=== PATIENT | female | born 1935 | race Two or more races ===

== ENCOUNTER 2016-04-01 11:11 | Inpatient (IN) | payer MEDICAID, MEDICARE ==
[2016-04-01] VITALS (11 sets, daily range): BP systolic 123–189; BP diastolic 62–135
[~2016-04-01] VITALS: Ht 157.5 cm; Wt 71.7 kg
[~2016-04-01 11:11] MED LIST: BISA-79 PO; CEFA1SYR IV; DILT240C88 PO; DOCU-170 PO; DONE5TAB3 PO; FURO40TA5 PO; Heparin Sodium,Porcine SQ; LACT10SO6 PO; LEVA0.6320 IH; MAGN400O4 PO; NA P133E RC; NUT.100029 PEG; PANT40TA4 PO; POLY17PO4 PO; SUCR1TAB PO; TYL2T PO
[2016-04-01] MEDS ORDERED: IV NS 0.9% 500 ML BAG IV ONE (13:00)
[2016-04-01] MEDS ORDERED: IV NS 0.9% 500 ML IV ONE (13:04)
[2016-04-01 13:31] LABS: BASOPHILS % (AUTO) 0.3 % (0.0-2.0); DIFF TOTAL % 100 %; EOSINOPHILS % (AUTO) 0.1 % (0.0-6.0); HEMATOCRIT 38 % (33-45); HEMOGLOBIN 12.4 g/dL (11.5-14.8); LYMPHOCYTES # (AUTO) 1.2 /CMM (0.8-4.8); MEAN CORPUSCULAR HEMOGLOBIN 29 PG (26.0-33.0); MEAN CORPUSCULAR HGB CONC 33 g/dl (31.0-36.0); MEAN CORPUSCULAR VOLUME 90 fL (82-100); MONOCYTES # (AUTO) 0.7 /CMM (0.1-1.30); MONOCYTES % (AUTO) 7.3 % (2.0-12.0); NEUTROPHILS # (AUTO) 8.1 /CMM (1.8-8.9); NEUTROPHILS % (AUTO) 80.3 % (43.0-81.0); PLATELET COUNT (AUTO) 323 /CMM (150-450); RED BLOOD CELL COUNT(AUTO) 4.24 MIL/uL (4.0-5.2); WHITE BLOOD COUNT (AUTO) 10.1 K/uL (4.3-11.0)
[2016-04-01 13:32] LABS: CALCIUM, SERUM 9.8 mg/dL (8.5-10.1); CREATININE 1.1 mg/dL (0.6-1.3); POTASSIUM 4.1 mmol/L (3.5-5.1)
[2016-04-01 13:36] LABS: INR 1.1 (0.87-1.13); PROTHROMBIN TIME 11.6 SECS (9.5-12.7)
[2016-04-01 13:40] LABS: TROPONIN I 0.023 ng/mL (0.00-0.056)
[2016-04-01 13:45] LABS: ALBUMIN 2.7 g/dL (3.4-5.0); BILIRUBIN,DIRECT 0.3 mg/dL (0.0-0.2); BILIRUBIN,TOTAL 0.8 mg/dL (0.2-1.0); INDIRECT BILIRUBIN 0.5 mg/dL (0.0-1.1); TOTAL PROTEIN, SERUM 6.8 g/dL (6.4-8.2)
[2016-04-01] MEDS ORDERED: DILTIAZEM HCL 25 MG IV ONE (13:49)
[2016-04-01 13:50] LABS: LACTIC ACID 1.3 mmol/L (0.4-2.0)
[2016-04-01] MEDS ORDERED: predniSONE 20 MG TABLET PO ONE (14:00)
[2016-04-01] MEDS ORDERED: LEVALBUTEROL HCL NEB 1.25 MG/0.5 ML VIAL.NEB NEB ONE (14:00)
[2016-04-01] MEDS ORDERED: DILTIAZEM HCL 25 MG IV IV ONE (14:00)
[2016-04-01] MEDS ORDERED: FUROSEMIDE 20 MG/2 ML VIAL IV ONE (14:00)
[2016-04-01] MEDS ORDERED: DILTIAZEM HCL IV 125 MG in IV D5W 100 ML IV ONE (14:00)
[2016-04-01] MEDS ORDERED: FUROSEMIDE 20 MG/2 ML VIAL ONE (14:03)
[2016-04-01] MEDS ORDERED: predniSONE 20 MG TABLET ONE (14:03)
[2016-04-01] MEDS ORDERED: LEVA0.6320 IH (14:08)
[2016-04-01] MEDS ORDERED: ASCO500T9 PO (14:08)
[2016-04-01] MEDS ORDERED: DONE5TAB34 PO (14:08)
[2016-04-01] MEDS ORDERED: MULT-659 PO (14:08)
[2016-04-01] MEDS ORDERED: ZINC220C8 PO (14:08)
[2016-04-01] MEDS ORDERED: IV SET PRIMARY PUMP SET 1 EA INFUS.SET MC ONE (14:19)
[2016-04-01] MEDS ORDERED: IV NS 0.9% 1,000 ML IV PRN (14:40)
[2016-04-01] MEDS ORDERED: PANTOPRAZOLE 40 MG TABLET.DR PO SCH (15:00)
[2016-04-01] MEDS: DONEPEZIL 5 MG TABLET PO SCH ×2 (15:00→21:54)
[2016-04-01] MEDS: ASCORBIC ACID 500 MG TABLET PO SCH (15:00)
[2016-04-01] MEDS ORDERED: Medication Not On Formulary EA (Levalbuterol Hcl (Xopenex) 0.63 MG) IH PRN (15:00)
[2016-04-01] MEDS ORDERED: ONDANSETRON HCL/PF 4 MG/2 ML VIAL IVP PRN (15:00)
[2016-04-01] MEDS: ZINC SULFATE 220 MG CAPSULE PO SCH (15:00)
[2016-04-01] MEDS ORDERED: Z GUARD REMEDY 2 OZ OINT TP PRN (15:00)
[2016-04-01] MEDS: SUCRALFATE 1 G TABLET PO SCH ×2 (15:00→17:32)
[2016-04-01] MEDS ORDERED: ACETAMINOPHEN 325 MG TABLET PO PRN (15:00)
[2016-04-01] MEDS ORDERED: ZOLPIDEM TARTRATE 5 MG TABLET PO PRN (15:00)
[2016-04-01] MEDS ORDERED: MORPHINE SULFATE INJ 2 MG/ML DISP.SYRIN IV PRN (15:00)
[2016-04-01] MEDS: methylPREDNISolone SOD SUCC 40 MG/ML VIAL IV SCH ×2 (15:00→17:32)
[2016-04-01] MEDS ORDERED: ALBUTEROL HALF STRENGTH 1.25 MG/3 ML VIAL.NEB NEB PRN (15:30)
[2016-04-01] MEDS: FUROSEMIDE 40 MG/4 ML VIAL IV SCH (17:01)
[2016-04-01] MEDS: ENOXAPARIN SODIUM 40 MG/0.4 ML DISP.SYRIN SQ SCH (17:02)
[2016-04-01] MEDS: DILTIAZEM HCL CD 240 MG PO SCH (17:03)
[2016-04-01] MEDS: ALBUTEROL FS 2.5 MG/0.5 ML VIAL.NEB NEB SCH ×2 (17:18→19:38)
[2016-04-01] MEDS: IPRATROPIUM NEB FS 0.5 MG/2.5 ML AMPUL.NEB NEB SCH ×2 (17:19→19:25)
[2016-04-01] MEDS: PANTOPRAZOLE 40 MG TABLET.DR PO SCH (17:32)
[2016-04-01] MEDS ORDERED: DILTIAZEM HCL 30 MG TABLET PO SCH (18:00)
[2016-04-01] MEDS ORDERED: LORAZEPAM INJ 2 MG/ML VIAL IV PRN (19:00)
[2016-04-01] MEDS: hydrALAZINE HCL 25 MG TABLET PO SCH (19:01)
[2016-04-01] MEDS: HYDROCODONE/APAP 5/325MG 1 EACH TABLET PO PRN (20:01)
[2016-04-02] VITALS (20 sets, daily range): BP systolic 104–132; BP diastolic 50–89
[2016-04-02] MEDS: IPRATROPIUM NEB FS 0.5 MG/2.5 ML AMPUL.NEB NEB SCH ×7 (00:04→23:51)
[2016-04-02] MEDS: ALBUTEROL FS 2.5 MG/0.5 ML VIAL.NEB NEB SCH ×3 (00:05→07:28)
[2016-04-02] MEDS: hydrALAZINE HCL 25 MG TABLET PO SCH ×3 (05:05→20:37)
[2016-04-02 05:19] LABS: BASOPHILS % (AUTO) 0.2 % (0.0-2.0); DIFF TOTAL % 100 %; HEMATOCRIT 36 % (33-45); HEMOGLOBIN 11.6 g/dL (11.5-14.8); LYMPHOCYTES # (AUTO) 0.8 /CMM (0.8-4.8); LYMPHOCYTES % (AUTO) 13.3 % (20.0-44.0); MEAN CORPUSCULAR HEMOGLOBIN 30 PG (26.0-33.0); MEAN CORPUSCULAR HGB CONC 33 g/dl (31.0-36.0); MEAN CORPUSCULAR VOLUME 90 fL (82-100); MONOCYTES # (AUTO) 0.1 /CMM (0.1-1.30); MONOCYTES % (AUTO) 1.4 % (2.0-12.0); NEUTROPHILS # (AUTO) 5.3 /CMM (1.8-8.9); NEUTROPHILS % (AUTO) 85.1 % (43.0-81.0); PLATELET COUNT (AUTO) 281 /CMM (150-450); RED BLOOD CELL COUNT(AUTO) 3.94 MIL/uL (4.0-5.2); WHITE BLOOD COUNT (AUTO) 6.2 K/uL (4.3-11.0)
[2016-04-02 05:34] LABS: ALBUMIN 2.6 g/dL (3.4-5.0); BILIRUBIN,TOTAL 0.4 mg/dL (0.2-1.0); CALCIUM, SERUM 9.7 mg/dL (8.5-10.1); PHOSPHORUS 3.6 mg/dL (2.5-4.9); POTASSIUM 3.5 mmol/L (3.5-5.1); TOTAL PROTEIN, SERUM 6.7 g/dL (6.4-8.2)
[2016-04-02] MEDS: FUROSEMIDE 40 MG/4 ML VIAL IV SCH ×2 (08:31→17:08)
[2016-04-02] MEDS: SUCRALFATE 1 G TABLET PO SCH ×3 (08:31→17:08)
[2016-04-02] MEDS: DILTIAZEM HCL CD 240 MG PO SCH (08:31)
[2016-04-02] MEDS: ZINC SULFATE 220 MG CAPSULE PO SCH (08:31)
[2016-04-02] MEDS: methylPREDNISolone SOD SUCC 40 MG/ML VIAL IV SCH ×3 (08:31→17:08)
[2016-04-02] MEDS: MULTIVIT, IRON, MIN NO. 8, FA 1 TAB TABLET PO SCH (08:31)
[2016-04-02] MEDS: ASCORBIC ACID 500 MG TABLET PO SCH (08:34)
[2016-04-02] MEDS: PANTOPRAZOLE 40 MG TABLET.DR PO SCH ×2 (08:38→17:08)
[2016-04-02] MEDS ORDERED: DILTIAZEM HCL CD 180 MG PO SCH (09:00)
[2016-04-02] MEDS: POTASSIUM CHLORIDE 20 MEQ TAB.PRT.SR PO SCH ×3 (09:36→12:02)
[2016-04-02] MEDS ORDERED: DILTIAZEM HCL CD 120 MG PO ONE (10:00)
[2016-04-02] MEDS: LEVALBUTEROL HCL NEB 1.25 MG/0.5 ML VIAL.NEB IH SCH ×3 (10:15→23:51)
[2016-04-02] MEDS: ENOXAPARIN SODIUM 40 MG/0.4 ML DISP.SYRIN SQ SCH (20:39)
[2016-04-02] MEDS: DONEPEZIL 5 MG TABLET PO SCH (22:30)
[2016-04-03] VITALS (15 sets, daily range): BP systolic 11–138; BP diastolic 56–90
[2016-04-03] MEDS ORDERED: GUAIFENESIN 300 MG/15 ML UDC ONE (03:40)
[2016-04-03] MEDS: GUAIFENESIN 300 MG/15 ML UDC PO PRN ×4 (03:43→19:38)
[2016-04-03] MEDS: IPRATROPIUM NEB FS 0.5 MG/2.5 ML AMPUL.NEB NEB SCH ×5 (03:57→20:02)
[2016-04-03] MEDS: hydrALAZINE HCL 25 MG TABLET PO SCH ×3 (04:33→20:48)
[2016-04-03] MEDS: LEVALBUTEROL HCL NEB 1.25 MG/0.5 ML VIAL.NEB IH SCH ×2 (08:08→14:32)
[2016-04-03] MEDS: ZINC SULFATE 220 MG CAPSULE PO SCH (08:20)
[2016-04-03] MEDS: SUCRALFATE 1 G TABLET PO SCH ×3 (08:20→16:00)
[2016-04-03] MEDS: ASCORBIC ACID 500 MG TABLET PO SCH (08:21)
[2016-04-03] MEDS: methylPREDNISolone SOD SUCC 40 MG/ML VIAL IV SCH ×3 (08:21→16:00)
[2016-04-03] MEDS: FUROSEMIDE 40 MG/4 ML VIAL IV SCH ×2 (08:21→16:00)
[2016-04-03] MEDS: DILTIAZEM HCL CD 180 MG PO SCH (08:21)
[2016-04-03] MEDS: MULTIVIT, IRON, MIN NO. 8, FA 1 TAB TABLET PO SCH (08:21)
[2016-04-03] MEDS: PANTOPRAZOLE 40 MG TABLET.DR PO SCH ×2 (08:21→16:00)
[2016-04-03 10:05] LABS: BASOPHILS % (AUTO) 0.3 % (0.0-2.0); DIFF TOTAL % 100 %; HEMATOCRIT 37 % (33-45); HEMOGLOBIN 11.9 g/dL (11.5-14.8); LYMPHOCYTES # (AUTO) 0.6 /CMM (0.8-4.8); LYMPHOCYTES % (AUTO) 3.7 % (20.0-44.0); MEAN CORPUSCULAR HEMOGLOBIN 29 PG (26.0-33.0); MEAN CORPUSCULAR HGB CONC 32 g/dl (31.0-36.0); MEAN CORPUSCULAR VOLUME 90 fL (82-100); MONOCYTES # (AUTO) 0.6 /CMM (0.1-1.30); MONOCYTES % (AUTO) 3.7 % (2.0-12.0); NEUTROPHILS # (AUTO) 14.2 /CMM (1.8-8.9); NEUTROPHILS % (AUTO) 92.3 % (43.0-81.0); PLATELET COUNT (AUTO) 309 /CMM (150-450); RED BLOOD CELL COUNT(AUTO) 4.11 MIL/uL (4.0-5.2); WHITE BLOOD COUNT (AUTO) 15.4 K/uL (4.3-11.0)
[2016-04-03 10:34] LABS: ALANINE AMINOTRANSFERASE 8 U/L (12-78); ALBUMIN 2.7 g/dL (3.4-5.0); ANION GAP 10 (5-14); ASPARTATE AMINOTRANSFERASE 17 U/L (15-37); BILIRUBIN,TOTAL 0.6 mg/dL (0.2-1.0); CARBON DIOXIDE 35 mmol/L (21-32); CHLORIDE 99 mmol/L (98-107); GLUCOSE 133 mg/dL (74-106); PHOSPHORUS 3.2 mg/dL (2.5-4.9); POTASSIUM 3.6 mmol/L (3.5-5.1); SODIUM SERUM 140 mmol/L (136-145); TOTAL PROTEIN, SERUM 6.7 g/dL (6.4-8.2); UREA NITROGEN, BLOOD 25 mg/dL (7-18)
[2016-04-03] MEDS: DIGOXIN INJ 0.5 MG/2 ML AMPUL IV SCH ×3 (12:01→23:56)
[2016-04-03 14:06] LABS: TROPONIN I < 0.017 ng/mL (0.00-0.056)
[2016-04-03] MEDS: DONEPEZIL 5 MG TABLET PO SCH (20:48)
[2016-04-03] MEDS: ENOXAPARIN SODIUM 40 MG/0.4 ML DISP.SYRIN SQ SCH (20:48)
[2016-04-04] VITALS (9 sets, daily range): BP systolic 127–150; BP diastolic 54–77
[2016-04-04] MEDS: IPRATROPIUM NEB FS 0.5 MG/2.5 ML AMPUL.NEB NEB SCH ×6 (00:02→19:09)
[2016-04-04] MEDS: LEVALBUTEROL HCL NEB 1.25 MG/0.5 ML VIAL.NEB IH SCH ×4 (00:02→23:19)
[2016-04-04] MEDS: hydrALAZINE HCL 25 MG TABLET PO SCH ×3 (04:44→21:00)
[2016-04-04] MEDS: GUAIFENESIN 300 MG/15 ML UDC PO PRN ×3 (04:44→19:06)
[2016-04-04] MEDS: MULTIVIT, IRON, MIN NO. 8, FA 1 TAB TABLET PO SCH (08:44)
[2016-04-04] MEDS: methylPREDNISolone SOD SUCC 40 MG/ML VIAL IV SCH ×3 (08:44→15:51)
[2016-04-04] MEDS: FUROSEMIDE 40 MG/4 ML VIAL IV SCH ×2 (08:44→15:51)
[2016-04-04] MEDS: DILTIAZEM HCL CD 180 MG PO SCH (08:44)
[2016-04-04] MEDS: ASCORBIC ACID 500 MG TABLET PO SCH (08:44)
[2016-04-04] MEDS: PANTOPRAZOLE 40 MG TABLET.DR PO SCH ×2 (08:44→15:51)
[2016-04-04] MEDS: ZINC SULFATE 220 MG CAPSULE PO SCH (08:44)
[2016-04-04] MEDS: SUCRALFATE 1 G TABLET PO SCH ×3 (08:44→15:51)
[2016-04-04 13:08] LABS: CALCIUM, SERUM 9.6 mg/dL (8.5-10.1); CREATININE 1.1 mg/dL (0.6-1.3)
[2016-04-04 13:56] LABS: DIFF TOTAL % 100 %; EOSINOPHILS % (AUTO) 0.1 % (0.0-6.0); HEMATOCRIT 39 % (33-45); HEMOGLOBIN 12.4 g/dL (11.5-14.8); LYMPHOCYTES # (AUTO) 0.5 /CMM (0.8-4.8); MEAN CORPUSCULAR HEMOGLOBIN 29 PG (26.0-33.0); MEAN CORPUSCULAR HGB CONC 32 g/dl (31.0-36.0); MEAN CORPUSCULAR VOLUME 91 fL (82-100); MONOCYTES # (AUTO) 0.6 /CMM (0.1-1.30); MONOCYTES % (AUTO) 6.1 % (2.0-12.0); NEUTROPHILS # (AUTO) 8.6 /CMM (1.8-8.9); NEUTROPHILS % (AUTO) 88.8 % (43.0-81.0); PLATELET COUNT (AUTO) 309 /CMM (150-450); RED BLOOD CELL COUNT(AUTO) 4.32 MIL/uL (4.0-5.2); WHITE BLOOD COUNT (AUTO) 9.6 K/uL (4.3-11.0)
[2016-04-04] MEDS ORDERED: POTASSIUM CHLORIDE 20 MEQ TAB.PRT.SR PO ONE (14:00)
[2016-04-04] MEDS ORDERED: PIPERACILLIN /TAZOBACTAM 4.5 G in IV D5W 50 ML IV SCH (14:00)
[2016-04-04] MEDS ORDERED: FEE PK DOSING 1 MIN EA MC ONE ×2 (14:06→14:10)
[2016-04-04] MEDS: DIGOXIN 0.125 MG TABLET PO SCH (14:10)
[2016-04-04] MEDS ORDERED: SECONDARY IV SET 1 EA INFUS.SET MC ONE ×2 (15:38→15:54)
[2016-04-04] MEDS ORDERED: IV SET PRIMARY PUMP SET 1 EA INFUS.SET MC ONE ×3 (15:38→15:55)
[2016-04-04] MEDS ORDERED: IV NS 0.9% 250 ML IV ONE (15:39)
[2016-04-04] MEDS: PIPERACILLIN /TAZOBACTAM 3.375 G in IV D5W 50 ML IV SCH ×2 (15:49→19:06)
[2016-04-04] MEDS: VANCOMYCIN 1 GM in IV D5W 250 ML IV SCH (15:49)
[2016-04-04] MEDS: RIVAROXABAN 15 MG TABLET PO SCH (15:52)
[2016-04-04] MEDS: DONEPEZIL 5 MG TABLET PO SCH (22:14)
[2016-04-05] VITALS (8 sets, daily range): BP systolic 111–139; BP diastolic 53–68
[2016-04-05] MEDS: IPRATROPIUM NEB FS 0.5 MG/2.5 ML AMPUL.NEB NEB SCH ×7 (00:02→23:02)
[2016-04-05] MEDS: PIPERACILLIN /TAZOBACTAM 3.375 G in IV D5W 50 ML IV SCH ×5 (05:17→17:27)
[2016-04-05] MEDS: hydrALAZINE HCL 25 MG TABLET PO SCH ×3 (05:18→21:45)
[2016-04-05] MEDS: LEVALBUTEROL HCL NEB 1.25 MG/0.5 ML VIAL.NEB IH SCH ×3 (07:13→23:02)
[2016-04-05] MEDS: ZINC SULFATE 220 MG CAPSULE PO SCH (08:36)
[2016-04-05] MEDS: SUCRALFATE 1 G TABLET PO SCH ×3 (08:36→17:26)
[2016-04-05] MEDS: MULTIVIT, IRON, MIN NO. 8, FA 1 TAB TABLET PO SCH (08:36)
[2016-04-05] MEDS: methylPREDNISolone SOD SUCC 40 MG/ML VIAL IV SCH ×3 (08:37→17:26)
[2016-04-05] MEDS: ASCORBIC ACID 500 MG TABLET PO SCH (08:37)
[2016-04-05] MEDS: DILTIAZEM HCL CD 180 MG PO SCH (08:37)
[2016-04-05] MEDS: PANTOPRAZOLE 40 MG TABLET.DR PO SCH ×2 (08:37→17:26)
[2016-04-05] MEDS: VANCOMYCIN 1 GM in IV D5W 250 ML IV SCH (08:39)
[2016-04-05] MEDS: FUROSEMIDE 40 MG/4 ML VIAL IV SCH (08:40)
[2016-04-05 12:06] LABS: CREATININE 1.1 mg/dL (0.6-1.3); POTASSIUM 3.3 mmol/L (3.5-5.1)
[2016-04-05] MEDS: DIGOXIN 0.125 MG TABLET PO SCH (12:29)
[2016-04-05] MEDS ORDERED: APIXABAN 2.5 MG TABLET PO SCH (12:30)
[2016-04-05] MEDS ORDERED: POTASSIUM CHLORIDE 20 MEQ TAB.PRT.SR PO SCH (16:00)
[2016-04-05] MEDS: FUROSEMIDE 20 MG TABLET PO SCH (17:26)
[2016-04-05] MEDS: RIVAROXABAN 15 MG TABLET PO SCH (17:27)
[2016-04-05] MEDS: HYDROCODONE/APAP 5/325MG 1 EACH TABLET PO PRN (18:26)
[2016-04-05] MEDS: DONEPEZIL 5 MG TABLET PO SCH (21:45)
[2016-04-06] VITALS (10 sets, daily range): BP systolic 126–145; BP diastolic 53–80
[2016-04-06] MEDS: PIPERACILLIN /TAZOBACTAM 3.375 G in IV D5W 50 ML IV SCH ×4 (00:41→17:29)
[2016-04-06] MEDS: VANCOMYCIN 1 GM in IV D5W 250 ML IV SCH (01:31)
[2016-04-06] MEDS: IPRATROPIUM NEB FS 0.5 MG/2.5 ML AMPUL.NEB NEB SCH ×5 (02:53→19:22)
[2016-04-06] MEDS: hydrALAZINE HCL 25 MG TABLET PO SCH ×2 (05:00→13:31)
[2016-04-06] MEDS: LEVALBUTEROL HCL NEB 1.25 MG/0.5 ML VIAL.NEB IH SCH ×2 (07:40→15:41)
[2016-04-06] MEDS: SUCRALFATE 1 G TABLET PO SCH ×3 (10:21→18:06)
[2016-04-06] MEDS: MULTIVIT, IRON, MIN NO. 8, FA 1 TAB TABLET PO SCH (10:21)
[2016-04-06] MEDS: methylPREDNISolone SOD SUCC 40 MG/ML VIAL IV SCH ×3 (10:21→18:06)
[2016-04-06] MEDS: FUROSEMIDE 20 MG TABLET PO SCH ×2 (10:21→18:06)
[2016-04-06] MEDS: ASCORBIC ACID 500 MG TABLET PO SCH (10:21)
[2016-04-06] MEDS: ZINC SULFATE 220 MG CAPSULE PO SCH (10:21)
[2016-04-06] MEDS: PANTOPRAZOLE 40 MG TABLET.DR PO SCH ×2 (10:21→18:07)
[2016-04-06 15:54] LABS: BASOPHILS % (AUTO) 0.1 % (0.0-2.0); DIFF TOTAL % 100 %; EOSINOPHILS % (AUTO) 0.1 % (0.0-6.0); HEMATOCRIT 40 % (33-45); HEMOGLOBIN 12.9 g/dL (11.5-14.8); LYMPHOCYTES # (AUTO) 0.3 /CMM (0.8-4.8); LYMPHOCYTES % (AUTO) 3.6 % (20.0-44.0); MEAN CORPUSCULAR HEMOGLOBIN 29 PG (26.0-33.0); MEAN CORPUSCULAR HGB CONC 33 g/dl (31.0-36.0); MEAN CORPUSCULAR VOLUME 89 fL (82-100); MONOCYTES # (AUTO) 2.8 /CMM (0.1-1.30); MONOCYTES % (AUTO) 30.1 % (2.0-12.0); NEUTROPHILS # (AUTO) 6.1 /CMM (1.8-8.9); NEUTROPHILS % (AUTO) 66.1 % (43.0-81.0); PLATELET COUNT (AUTO) 348 /CMM (150-450); RED BLOOD CELL COUNT(AUTO) 4.46 MIL/uL (4.0-5.2); WHITE BLOOD COUNT (AUTO) 9.2 K/uL (4.3-11.0)
[2016-04-06 15:58] LABS: CALCIUM, SERUM 8.9 mg/dL (8.5-10.1); CREATININE 1.2 mg/dL (0.6-1.3); POTASSIUM 2.9 mmol/L (3.5-5.1)
[2016-04-06 15:58] LABS: KETONES,URINE NEGATIVE (NEGATIVE); LEUKOCYTE ESTERASE ,URINE 2+ (NEGATIVE); PH,URINE 7.5 (5.0-8.0)
[2016-04-06 16:00] LABS: ADD UA MICROSCOPIC YES
[2016-04-06 16:02] LABS: ADD URINE CULTURE YES; RBC,URINE 81-100 /HPF (0-2)
[2016-04-06 16:18] LABS: LYMPHOCYTES % (MANUAL) 6 % (16-48); PLATELET ESTIMATE ADEQUATE
[2016-04-06 16:19] LABS: ANISOCYTOSIS 1+
[2016-04-06] MEDS: GUAIFENESIN 300 MG/15 ML UDC PO PRN (16:19)
[2016-04-06] MEDS: RIVAROXABAN 15 MG TABLET PO SCH (17:00)
[2016-04-06] MEDS ORDERED: LACTOBACILLUS RHAMNOSUS GG 1 EACH CAP.SPRINK PO SCH (17:00)
[2016-04-06] MEDS ORDERED: POTASSIUM CHLORIDE 20 MEQ TAB.PRT.SR PO ONE (17:30)
[2016-04-06] MEDS: HYDROCODONE/APAP 5/325MG 1 EACH TABLET PO PRN (20:23)
[2016-04-07] MEDS ORDERED: VANCOMYCIN 1 GM in IV D5W 250 ML IV SCH (02:00)
[2016-04-07] MEDS ORDERED: DILTIAZEM HCL CD 180 MG PO SCH (09:00)
[2016-04-07] MEDS ORDERED: DIGOXIN 0.125 MG TABLET PO SCH (13:00)
== END 2016-04-06 20:20 | DRG 201 ==
LOC: ER 11:13 → ICU 14:34 → TELE-TD 04-04 03:57 → TELE1 04-04 10:27 → TELE 04-05 16:40
PROVIDERS: ADMIT Internal Medicine; ATTEND Internal Medicine
PROC: 05H533Z Insertion of Infusion Device into Right Subclavian Vein, Percutaneous Approach (ICD-10-PCS; principal; 2016-04-05)
DX: I48.2 Chronic atrial fibrillation (principal); J96.01 Acute respiratory failure with hypoxia; I50.23 Acute on chronic systolic (congestive) heart failure; G93.40 Encephalopathy, unspecified; J18.9 Pneumonia, unspecified organism; L89.152 Pressure ulcer of sacral region, stage 2; F03.90 Unspecified dementia, unspecified severity, without behavioral disturbance, psychotic disturbance, mood disturbance, and anxiety; D68.59 Other primary thrombophilia; I11.0 Hypertensive heart disease with heart failure; I16.0 Hypertensive urgency; J44.1 Chronic obstructive pulmonary disease with (acute) exacerbation; D64.9 Anemia, unspecified; J20.9 Acute bronchitis, unspecified; I10 Essential (primary) hypertension; K21.9 Gastro-esophageal reflux disease without esophagitis; E66.01 Morbid (severe) obesity due to excess calories; R31.9 Hematuria, unspecified; K59.00 Constipation, unspecified; I16.1 Hypertensive emergency; K92.2 Gastrointestinal hemorrhage, unspecified; Z79.01 Long term (current) use of anticoagulants; Z99.81 Dependence on supplemental oxygen
CPT/HCPCS: 36415; 71010-TC; 80048-TC; 80053-TC; 80061-TC; 80076-TC; 80162-TC; 80202-TC; 81000-TC; 83605-TC; 83735-TC; 83880; 84100-TC; 84484-TC; 85025-TC; 85730-TC; 87040-TC; 87081-TC; 87086-TC; 87400; 93971-TC; 94799-TC; A4606; J1160; J1650; J1940; J2270; J2543; J2920; J3370; J3490; J7040; J7050; J7060; Z7610

== ENCOUNTER 2016-06-22 18:28 | Inpatient (IN) | payer MEDICAID, MEDICARE ==
[~2016-06-22] VITALS: Ht 172.7 cm; Wt 67.1 kg
[~2016-06-22 18:28] MED LIST changes: +ASCO500T9 PO; -BISA-79 PO; -CEFA1SYR IV; -DILT240C88 PO; -DOCU-170 PO; -DONE5TAB3 PO; +DONE5TAB34 PO; -FURO40TA5 PO; -Heparin Sodium,Porcine SQ; -LACT10SO6 PO; -MAGN400O4 PO; +MULT-659 PO; -NA P133E RC; -NUT.100029 PEG; -POLY17PO4 PO; -TYL2T PO; +ZINC220C8 PO
--- NOTE | 2016-06-22 18:50 | NUR ---
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 UPON TRIAGE AND NURSE ASSESSMENT, PT C/O GENERALIZED BODY ACHES. RESP EVEN UNLABORED. SKIN WARM NONDIAPHORETIC. ON O2 AT 4LPM VIA NC. NOTED WITH +1 GENERALIZED PITTING EDEMA. NAD NOTED. IN ER BED 09 ON MONITOR.
[2016-06-22 19:27] LABS: BASOPHILS # (AUTO) 0.1 /CMM (0.0-0.2); BASOPHILS % (AUTO) 0.8 % (0.0-2.0); EOSINOPHILS % (AUTO) 0.6 % (0.0-6.0); HEMATOCRIT 34 % (33-45); HEMOGLOBIN 11.3 g/dL (11.5-14.8); LYMPHOCYTES # (AUTO) 1.5 /CMM (0.8-4.8); LYMPHOCYTES % (AUTO) 19.7 % (20.0-44.0); MEAN CORPUSCULAR HEMOGLOBIN 31 PG (26.0-33.0); MEAN CORPUSCULAR HGB CONC 33 g/dl (31.0-36.0); MEAN CORPUSCULAR VOLUME 91 fL (82-100); MONOCYTES # (AUTO) 0.5 /CMM (0.1-1.30); MONOCYTES % (AUTO) 6.7 % (2.0-12.0); NEUTROPHILS # (AUTO) 5.6 /CMM (1.8-8.9); NEUTROPHILS % (AUTO) 72.2 % (43.0-81.0); PLATELET COUNT (AUTO) 332 /CMM (150-450); RDW COEFFICIENT OF VARIATION 14.7 (11.5-15.0); WHITE BLOOD COUNT (AUTO) 7.7 K/uL (4.3-11.0)
[2016-06-22 19:37] LABS: PROTHROMBIN TIME 10.4 SECS (9.5-12.7)
[2016-06-22 19:41] LABS: TROPONIN I 0.034 ng/mL (0.00-0.056)
[2016-06-22 19:45] LABS: ALBUMIN 2.5 g/dL (3.4-5.0); BILIRUBIN,DIRECT 0.1 mg/dL (0.0-0.2); BILIRUBIN,TOTAL 0.4 mg/dL (0.2-1.0); CALCIUM, SERUM 9.5 mg/dL (8.5-10.1); CREATININE 0.9 mg/dL (0.6-1.3); POTASSIUM 4.3 mmol/L (3.5-5.1); TOTAL PROTEIN, SERUM 6.6 g/dL (6.4-8.2)
[2016-06-22 20:10] LABS: APPEARANCE,URINE Clear (CLEAR); BILIRUBIN,URINE Negative (NEGATIVE); BLOOD, URINE Small Ery/uL (NEGATIVE); COLOR,URINE Yellow (YELLOW); KETONES,URINE Negative (NEGATIVE); LEUKOCYTE ESTERASE ,URINE Trace (NEGATIVE); NITRITE, URINE Positive (NEGATIVE); PH,URINE 5.5 (5.0-8.0); PROTEIN,URINE 100 mg/dl (NEGATIVE); UGLUCOSE Negative (NEGATIVE)
[2016-06-22] MEDS ORDERED: FUROSEMIDE 100 MG/10 ML VIAL ONE (20:20)
--- NOTE | 2016-06-22 20:25 | NUR ---
PAGED DR BUTTS FOR ADMISSION.
[2016-06-22] MEDS ORDERED: FUROSEMIDE 40 MG/4 ML VIAL IV ONE (20:30)
[2016-06-22 20:35] LABS: WBC,URINE 51-80 /HPF (0-3)
[2016-06-22 20:36] LABS: ADD URINE CULTURE YES; BACTERIA,URINE Many /HPF (None Seen); SQUAMOUS EPITHELIAL CELL,UR Moderate /HPF (None Seen); URINE AMORPHOUS URATE Moderate /HPF (None Seen)
--- NOTE | 2016-06-22 20:40 | NUR ---
PATIENT ASSIGNED TO TELE 119-2
--- NOTE | 2016-06-22 21:00 | NUR ---
PT ASLEEP CURRENTLY, EASILY AROUSABLE. NAD NOTED. VSS.
[2016-06-22] MEDS ORDERED: CEFTRIAXONE 1GM BAG (ER ONLY) 50 ML IV ONE (21:19)
[2016-06-22] MEDS ORDERED: IV SET PRIMARY 1 EA INFUS.SET MC ONE (21:19)
--- NOTE | 2016-06-22 21:19 | NUR ---
REPORT GIVEN TO DEVIN GARCIA FOR ADMISSION
[2016-06-22] MEDS ORDERED: MAG HYDROX/AL HYDROX/SIMETH 30 ML UDC PO PRN (21:30)
[2016-06-22] MEDS ORDERED: ZOLPIDEM TARTRATE 5 MG TABLET PO PRN (21:30)
[2016-06-22] MEDS ORDERED: Z GUARD REMEDY 2 OZ OINT TP PRN (21:30)
[2016-06-22] MEDS ORDERED: CEFTRIAXONE 1 G in IV D5W 50 ML IV SCH (21:30)
[2016-06-22] MEDS ORDERED: MAGNESIUM HYDROXIDE 30 ML UDC PO PRN (21:30)
[2016-06-22] MEDS ORDERED: ACETAMINOPHEN 325 MG TABLET PO PRN (21:30)
[2016-06-22] MEDS ORDERED: ONDANSETRON HCL/PF 4 MG/2 ML VIAL IVP PRN (21:30)
--- NOTE | 2016-06-22 21:35 | NUR ---
RECEIVED PTS FROM ER NURSE JOHN PEDROZA A 80 Y/O FEMALE LETHARGIC WITH ADMITTED DX OF ACUTE CHF AND UTI ,UNDER DR BUTTS , ADMISSION ROUTINE CARE RENDERED . ORDERED NOTED AND CARRIED OUT , V/S STABLE AFEBRILE , PTS IS DNR DNI , CHARGED NURSE SENAIT LEFT MESSAGE WITH THE FAMILY.WILL CONTINUE TO MONITOR PTS.
[2016-06-22 21:40] VITALS: BP 155/88
--- NOTE | 2016-06-22 21:48 | NUR ---
PT TRANSPORTED TO [facility] IN STABLE CONDITION VIA ACLS PROTOCOL
[2016-06-22] MEDS: CEFTRIAXONE 1 G in IV D5W 50 ML IV SCH (22:00)
[2016-06-22] MEDS ORDERED: ALBUTEROL FS 2.5 MG/3 ML VIAL.NEB NEB PRN (22:00)
[2016-06-22] MEDS ORDERED: METOPROLOL TARTRATE 25 MG TABLET PO PRN (22:00)
[2016-06-22] MEDS: DONEPEZIL 5 MG TABLET PO SCH (22:00)
--- NOTE | 2016-06-22 22:47 | NUR ---
cable television technician notes spoke to dr velez re lactic acid 0.4 ,[id number] trop-[id number], with no order at this time. dr velez said no fluids necessary encourage pts to drink water when possible.and may insert martini catheter.
--- NOTE | 2016-06-22 23:10 | NUR ---
radio television technical director notes abg result relayed to dr velez, with order maDE AND CARRIED OUT , TO PUT PTS ON BIPAP . RT MADE , .
[2016-06-22 23:15] LABS: ABG BASE EXCESS 8.7 mmol/L; ABG OXYGEN SATURATION 98.2 % (92.0-98.5); ABG PCO2 86.6 mmHg (35.0-45.0); ABG PH 7.267 (7.350-7.450); ABG PO2 136.4 mmHg (75.0-100.0); ABG TOTAL HEMOGLOBIN 12.1 G/dL (12.0-16.0); COHb 1.5 % (0.5-1.5); MetHb 0.9 % (0.0-1.5); O2Hb 95.8 % (94.0-97.0); SITE, ABG Right Radial; VENT MODE, BG Nasal Cannula
--- NOTE | 2016-06-22 23:36 | NUR ---
PT PLACED ON BIPAP DUE TO HIGH CO2 BUT SHE REFUSED BIPAP. SPO2 98% PLACED PT ON 2L NC. RADHA BELTRAN NOTIFIED
--- NOTE | 2016-06-22 23:40 | NUR ---
PROMOTIONS FIRM ACCOUNTS MANAGER NOTES PTS PLACE ON BIPAP , UNFORTUNATELY PTS REFUSED IT , PTS BECOME AGITATED SCREAMING AND YELLING . MORE ALERT , SPOKE TO DR BUTTS WITH ORDER TO PUT PTS ON 2LITRES ON 02 AND REPEAT ABG AT 4AM, WILL CONTINUE TO MONITOR PTS. PTS SATING 98%.
--- NOTE | 2016-06-22 23:41 | NUR ---
RN NOTES [id number] PRIMARY RNDEVIN RECEIVED AN ORDER TO PLACE PATIENT ON BIPAP AFTER RELAYING ABG RESULTS. RTFATOU MADE AWARE. SET UP MACHINIST NOTIFIED. PATIENT WITH POLST DNR/DNI. SENT DR BUTTS COPY OF POLST SIGNED BY THE PATIENT ON 04/06/2016. CALLED TRISTIN, NEXT OF KIN TO CONFIRM POLST, AND TO INFORM OF BIPAP ORDER. LEFT MESSAGE TO CALL BACK. PRIMARY RN AWARE.
[2016-06-23] VITALS: BP 162/60
[2016-06-23] MEDS ORDERED: DILTIAZEM HCL 30 MG TABLET ONE ×2 (00:36→06:40)
[2016-06-23] MEDS ORDERED: DONEPEZIL 5 MG TABLET ONE (00:36)
[2016-06-23] MEDS: DILTIAZEM HCL 30 MG TABLET PO SCH ×6 (00:54→23:23)
[2016-06-23 04:00] VITALS: BP 146/61
--- NOTE | 2016-06-23 04:00 | NUR ---
ELECTRONICS TEACHER NOTES ABG RESULT RELAYED TO DR BUTTS , PTS SATING 98% ON 2LITERS OF 02 VIA NC , WITH NO NEW ORDER AT THIS TIME.
[2016-06-23 04:11] LABS: ABG BASE EXCESS 7.9 mmol/L; ABG OXYGEN SATURATION 92.5 % (92.0-98.5); ABG PH 7.364 (7.350-7.450); ABG PO2 64.5 mmHg (75.0-100.0); ABG TOTAL HEMOGLOBIN 11.7 G/dL (12.0-16.0); AaDO2 53.5 mmHg; COHb 1.5 % (0.5-1.5); MetHb 0.6 % (0.0-1.5); O2Hb 90.6 % (94.0-97.0); SITE, ABG Left Radial; VENT MODE, BG Nasal Cannula
--- NOTE | 2016-06-23 07:20 | NUR ---
INSULATION PACKER INITIAL NOTES: Rec'd pt asleep on bed, HOB elevated, easily arousable, A&O x2, not in any distress. Pt on NC at 2lpm, no SOB noted. On telemonitoring, A.fib w/ HR 98 bpm, denies chest pain. Pt has R hand G20, SL, flushed, patent, clean, dry & intact w/ no signs of infection/ infiltration noted. Provided comfort and safety environment. Call light placed w/in reached. Bed kept low and in locked position. Will continue to monitor.
[2016-06-23] MEDS ORDERED: ALBUTEROL HALF STRENGTH 1.25 MG/3 ML VIAL.NEB NEB PRN ×2 (07:30→07:35)
--- NOTE | 2016-06-23 07:37 | NUR ---
QA TESTER NOTES PTS ON BED AWAKE AND RESPONSIVE , V/S STABLE AFEBRILE, ENDORSE TO RN JASS FOR CONTINUITY OF CARE.
[2016-06-23 08:00] VITALS: BP 145/67
[2016-06-23 08:12] LABS: BASOPHILS # (AUTO) 0.1 /CMM (0.0-0.2); BASOPHILS % (AUTO) 0.9 % (0.0-2.0); EOSINOPHILS # (AUTO) 0.1 /CMM (0.0-0.7); EOSINOPHILS % (AUTO) 1.2 % (0.0-6.0); HEMATOCRIT 34 % (33-45); HEMOGLOBIN 10.9 g/dL (11.5-14.8); LYMPHOCYTES # (AUTO) 1.8 /CMM (0.8-4.8); LYMPHOCYTES % (AUTO) 20.8 % (20.0-44.0); MEAN CORPUSCULAR HEMOGLOBIN 30 PG (26.0-33.0); MEAN CORPUSCULAR HGB CONC 32 g/dl (31.0-36.0); MEAN CORPUSCULAR VOLUME 92 fL (82-100); MONOCYTES # (AUTO) 0.7 /CMM (0.1-1.30); MONOCYTES % (AUTO) 8.2 % (2.0-12.0); NEUTROPHILS # (AUTO) 6.1 /CMM (1.8-8.9); NEUTROPHILS % (AUTO) 68.9 % (43.0-81.0); PLATELET COUNT (AUTO) 325 /CMM (150-450); RDW COEFFICIENT OF VARIATION 15.7 (11.5-15.0); RED BLOOD CELL COUNT(AUTO) 3.67 MIL/uL (4.0-5.2); WHITE BLOOD COUNT (AUTO) 8.8 K/uL (4.3-11.0)
[2016-06-23] MEDS: ZINC SULFATE 220 MG CAPSULE PO SCH (08:37)
[2016-06-23] MEDS: PANTOPRAZOLE 40 MG TABLET.DR PO SCH (08:37)
[2016-06-23] MEDS: SUCRALFATE 1 G TABLET PO SCH ×3 (08:37→17:03)
[2016-06-23 08:43] LABS: CALCIUM, SERUM 9.1 mg/dL (8.5-10.1); CREATININE 0.8 mg/dL (0.6-1.3); MAGNESIUM 1.8 mg/dL (1.8-2.4); PHOSPHORUS 4.2 mg/dL (2.5-4.9); POTASSIUM 3.6 mmol/L (3.5-5.1)
[2016-06-23] MEDS ORDERED: DILTIAZEM HCL CD 240 MG PO SCH (09:00)
--- NOTE | 2016-06-23 13:00 | NUR ---
MS RN NOTES: Pt seen and examined by RENA Isaac.
[2016-06-23] MEDS ORDERED: IPRATROPIUM NEB FS 0.5 MG/2.5 ML AMPUL.NEB NEB PRN (14:00)
[2016-06-23 16:00] VITALS: BP 138/61
--- NOTE | 2016-06-23 18:52 | NUR ---
MS RN CLOSING NOTES: No acute changes noted w/in shift. Pt on NC at 2lpm, no SOB noted. Pt has R hand G20, SL, flushed, patent, clean, dry & intact w/ no signs of infection/ infiltration noted. Kept well rested & comfortable. Wound care done. Turned and repositioned, offloaded heels. Call light placed w/in reached. Bed kept low and in locked position. Will endorse to PM RN.
--- NOTE | 2016-06-23 19:00 | NUR ---
MS RN OPENING NOTES RECEIVED PATIENT IN BED IN STABLE CONDITION, IV SITE INTACT WITH S/S OF INFILTRATION. NO S/S OF DISTRESS, NO S/S OF DISTRESS NO SOB, NO CHEST PAIN. NO COMPLAINS OF PAIN, SAFE FREE ENVIRONMENT PROVIDED FREE OF CLUTTERS, WILL CONTINUE TO MONITOR, ON LOW BED TO ENSURE SAFETY, CALL LIGHT WITHIN REACH.
[2016-06-23 20:00] VITALS: BP 149/66
[2016-06-23] MEDS ORDERED: IV SET PRIMARY PUMP SET 1 EA INFUS.SET MC ONE (20:51)
[2016-06-23] MEDS: DONEPEZIL 5 MG TABLET PO SCH (21:04)
[2016-06-23] MEDS: CEFTRIAXONE 1 G in IV D5W 50 ML IV SCH (21:04)
[2016-06-23] MEDS: HYDROCODONE/APAP 5/325MG 1 EACH TABLET PO PRN (21:06)
[2016-06-24 04:00] VITALS: BP 141/82
[2016-06-24] MEDS: DILTIAZEM HCL 30 MG TABLET PO SCH ×2 (05:12→13:36)
--- NOTE | 2016-06-24 06:25 | NUR ---
MS RN CLOSING NOTES PATIENT COMFORTABLY ASLEEP AND EASILY AWAKEN, ON ATB WITH NO A/R NOTED. ALERT AND VERBALLY RESPONSIVE. ON 02 2LPM VIA NC 02 SAT AT 95% R.A HEAD OF BED ELEVATED FOR BETTER LUNG EXPANSION. IV SITE NO S/S OF INFILTRATED, PATIENT DENIES PAIN AT THIS TIME. 0/10 RESPIRATIONS EVEN AND UNLABORED. NO S/S OF ACUTE DISTRESS, NO SOB, NO COUGH, NO CONGESTION, SKIN WARM AND DRY TO TOUCH, AFEBRILE, ALL NURSING CARE NEEDS PROVIDED AND RENDERED, NEEDS ATTENDED AND ANTICIPATED, KEPT CLEAN AND DRY AND COMFORTABLE, BLADDER NOT DISTENDED, TREATMENT ORDERED. GOOD SKIN ARE PROVIDED. NO C/O OF CONSTIPATION. ALL DUE MEDS WAS GIVEN TOLERATED. FREQUENT VISUAL CHECK DONE FOR SAFETY EVERY 2 HOURS. REPOSITIONED EVERY 2 HOURS FOR COMFORT AND SKIN MGT. SAFE HAZARD FREE ENVIRONMENT PROVIDED. CALL LIGHT WITHIN EASY TO REACH, ON LOW BED AT ALL TIMES TO ENSURE SAFETY, WILL ENDORSE TO THE NEXT SHIFT CONTINUE PLAN OF CARE. F/C INTACT DRAINING YELLOW VIA GRAVITY WITH NO SEDIMENTS, NO HEMATURIA, NO CLOUDINESS. GOOD FC CARE PROVIDED.
[2016-06-24 06:53] LABS: BASOPHILS % (AUTO) 0.5 % (0.0-2.0); EOSINOPHILS % (AUTO) 0.2 % (0.0-6.0); HEMATOCRIT 37 % (33-45); HEMOGLOBIN 11.9 g/dL (11.5-14.8); LYMPHOCYTES # (AUTO) 1.8 /CMM (0.8-4.8); LYMPHOCYTES % (AUTO) 24.5 % (20.0-44.0); MEAN CORPUSCULAR HEMOGLOBIN 30 PG (26.0-33.0); MEAN CORPUSCULAR HGB CONC 32 g/dl (31.0-36.0); MEAN CORPUSCULAR VOLUME 92 fL (82-100); MONOCYTES # (AUTO) 0.4 /CMM (0.1-1.30); MONOCYTES % (AUTO) 5.7 % (2.0-12.0); NEUTROPHILS % (AUTO) 69.1 % (43.0-81.0); PLATELET COUNT (AUTO) 347 /CMM (150-450); RDW COEFFICIENT OF VARIATION 15.2 (11.5-15.0); RED BLOOD CELL COUNT(AUTO) 4.01 MIL/uL (4.0-5.2); WHITE BLOOD COUNT (AUTO) 7.2 K/uL (4.3-11.0)
--- NOTE | 2016-06-24 07:15 | NUR ---
RN INITIAL NOTE PT RECEIVED IN BED, RESTING COMFORTABLY. SIXTO KLEIN ORIENTED TO NAME. KEEPS ASKING IF SHE IS IN A HOSPITAL. ICELANDIC SPEAKING BUT DOES SPEAK SENEGALESE. ABLE TO MAKE NEEDS KNOWN. NO S/S OF PAIN OR DISCOMFORT. RESPIRATIONS ARE EVEN AND UNLABORED. NO RESPIRATORY DISTRESS OR SOB. RIGHT HAND IV SITE, SL, FLUSHED, PATENT AND INTACT. DRESSING C/D/I. SAFETY MEASURES IN PLACE, BED IN LOCKED, LOW POSITION, TWO SIDE RAILS UP. BED ALARM ON. CALL LIGHT WITHIN REACH. WILL CONTINUE TO MONITOR.
[2016-06-24 07:20] LABS: CALCIUM, SERUM 9.1 mg/dL (8.5-10.1); CREATININE 0.9 mg/dL (0.6-1.3); MAGNESIUM 1.9 mg/dL (1.8-2.4); POTASSIUM 3.7 mmol/L (3.5-5.1)
[2016-06-24 08:00] VITALS: BP 156/70
--- NOTE | 2016-06-24 08:17 | NUR ---
WOUND CARE CONSULT: PATIENT SEEN AND SKIN ASSESSMENT DONE. PATIENT ALERT, INCONTINENT, DANIELA 15, UNABLE TO TURN AND REPOSITION SELF IN BED, ON LEANNE ISOFLEX COLTEN BED IN USE. SEE TODAY'S SKIN ASSESSMENT IN PCS ALONG WITH RECOMMENDATIONS. RECOMMEND MOISTURE PROTECTION WITH Z GUARD, TURN AND REPOSITION EVERY 2 HRS PATIENT CONDITION PERMITS, OFFLOAD BOTH HEELS. ALL DISCUSSED WITH NURSING STAFF. MD IN AGREEMENT WITH PLAN OF CARE. Addendum: 06/24/16 at 0820 by ISMAEL DIAZ WNDNU Amended: Links added.
[2016-06-24] MEDS: ZINC SULFATE 220 MG CAPSULE PO SCH (08:27)
[2016-06-24] MEDS: SUCRALFATE 1 G TABLET PO SCH ×2 (08:27→13:36)
[2016-06-24] MEDS: HYDROCODONE/APAP 5/325MG 1 EACH TABLET PO PRN (08:28)
[2016-06-24] MEDS: PANTOPRAZOLE 40 MG TABLET.DR PO SCH (08:28)
[2016-06-24] MEDS ORDERED: NITROFURANTOIN/NITROFURAN MAC 100 MG CAPSULE PO SCH (10:30)
[2016-06-24 13:36] VITALS: BP 171/83
--- NOTE | 2016-06-24 14:30 | NUR ---
RN CLOSING NOTE PT DISCHARGED TO [facility]. REPORT GIVEN TO BLANCO. RIGHT HAND IV D/C'D. PALUMBO CATHETER REMOVED.
== END 2016-06-24 17:19 | DRG 194 ==
LOC: EDUNIT# 18:28 → ER 18:30 → TELE1 20:59 → MEDSG1 06-23 10:54
PROVIDERS: ADMIT Internal Medicine; ATTEND Internal Medicine
DX: I11.0 Hypertensive heart disease with heart failure (principal); J96.01 Acute respiratory failure with hypoxia; N17.9 Acute kidney failure, unspecified; E44.0 Moderate protein-calorie malnutrition; J96.02 Acute respiratory failure with hypercapnia; D69.2 Other nonthrombocytopenic purpura; N10 Acute pyelonephritis; E66.01 Morbid (severe) obesity due to excess calories; I48.2 Chronic atrial fibrillation; F03.90 Unspecified dementia, unspecified severity, without behavioral disturbance, psychotic disturbance, mood disturbance, and anxiety; J44.9 Chronic obstructive pulmonary disease, unspecified; E78.5 Hyperlipidemia, unspecified; I50.33 Acute on chronic diastolic (congestive) heart failure; K21.9 Gastro-esophageal reflux disease without esophagitis; J98.11 Atelectasis; D64.9 Anemia, unspecified; L30.4 Erythema intertrigo; Z95.1 Presence of aortocoronary bypass graft; Z68.22 Body mass index [BMI] 22.0-22.9, adult
CPT/HCPCS: 36415; 36600; 71010-TC; 80048-TC; 80061-TC; 80076-TC; 81000-TC; 82803-TC; 83605-TC; 83735-TC; 83880; 84100-TC; 84484-TC; 85025-TC; 85730-TC; 87081-TC; 87086-TC; 87186-TC; 93307-TC; 97001-TC; A4606; J0696; J1940; J7060; Z7610

== ENCOUNTER 2016-06-29 03:41 | Inpatient (IN) | payer MEDICAID, MEDICARE ==
[2016-06-29] VITALS (26 sets, daily range): BP systolic 97–162; BP diastolic 41–110
[~2016-06-29] VITALS: Ht 160 cm; Wt 66.2 kg
--- NOTE | 2016-06-29 03:45 | NUR ---
80 YO FEMALE BB RA FROM SNF. PT IS ALERT X 0, NON RESPONIVE. PER EMS, 911 WAS CALLED FOR SOB, EMS PLACED PT ON NON REBREATHER. PT DS TO ER BED, SKIN WARM AND DRY, RR EVEN, LABORED. RT AT BED SIDE FOR ABD. AWAITING ORDERS FROM PROVIDER
--- NOTE | 2016-06-29 03:50 | NUR ---
EMT AT BED SIDE FOR EKG
--- NOTE | 2016-06-29 03:51 | NUR ---
20G LEFT WRIST STARTED, BLOOD SAMPLE OBTAIEND AND SENT TO LAB
[2016-06-29] MEDS ORDERED: DILTIAZEM HCL 50 MG IV IV ONE (04:00)
[2016-06-29] MEDS ORDERED: DILTIAZEM HCL IV 125 MG in IV D5W 100 ML IV PRN (04:00)
[2016-06-29] MEDS ORDERED: DILTIAZEM HCL 25 MG IV ONE (04:01)
--- NOTE | 2016-06-29 04:10 | NUR ---
MEDICATED PT ORDERED
[2016-06-29 04:11] LABS: BASOPHILS % (AUTO) 0.4 % (0.0-2.0); EOSINOPHILS # (AUTO) 0.1 /CMM (0.0-0.7); EOSINOPHILS % (AUTO) 0.7 % (0.0-6.0); HEMATOCRIT 36 % (33-45); HEMOGLOBIN 11.4 g/dL (11.5-14.8); LYMPHOCYTES # (AUTO) 2.5 /CMM (0.8-4.8); LYMPHOCYTES % (AUTO) 24.2 % (20.0-44.0); MEAN CORPUSCULAR HEMOGLOBIN 29 PG (26.0-33.0); MEAN CORPUSCULAR HGB CONC 31 g/dl (31.0-36.0); MEAN CORPUSCULAR VOLUME 93 fL (82-100); MONOCYTES # (AUTO) 0.6 /CMM (0.1-1.30); MONOCYTES % (AUTO) 6.1 % (2.0-12.0); NEUTROPHILS # (AUTO) 7.1 /CMM (1.8-8.9); NEUTROPHILS % (AUTO) 68.6 % (43.0-81.0); PLATELET COUNT (AUTO) 339 /CMM (150-450); RED BLOOD CELL COUNT(AUTO) 3.92 MIL/uL (4.0-5.2); WHITE BLOOD COUNT (AUTO) 10.4 K/uL (4.3-11.0)
[2016-06-29] MEDS ORDERED: NA P133E RC (04:11)
[2016-06-29] MEDS ORDERED: TYL2T PO (04:11)
[2016-06-29] MEDS ORDERED: MAGN400O6 PO (04:11)
[2016-06-29] MEDS ORDERED: HYDR-3652 PO (04:11)
[2016-06-29] MEDS ORDERED: CRAN500C5 PO (04:11)
[2016-06-29] MEDS ORDERED: PROHEAL PO (04:11)
--- NOTE | 2016-06-29 04:25 | NUR ---
MANUAL BP SHOWING BP 72/40. MD BORREGO NOTIFIED
[2016-06-29 04:26] LABS: CALCIUM, SERUM 9.5 mg/dL (8.5-10.1); CREATININE 0.8 mg/dL (0.6-1.3); POTASSIUM 3.8 mmol/L (3.5-5.1)
[2016-06-29 04:31] LABS: PROTHROMBIN TIME 10.7 SECS (9.5-12.7)
[2016-06-29 04:33] LABS: TROPONIN I 0.036 ng/mL (0.00-0.056)
[2016-06-29 04:36] LABS: LACTIC ACID 0.9 mmol/L (0.4-2.0)
[2016-06-29] MEDS ORDERED: IV NS 0.9% 250 ML IV ONE ×3 (04:37→11:18)
[2016-06-29 04:40] LABS: ALBUMIN 2.7 g/dL (3.4-5.0); BILIRUBIN,DIRECT 0.1 mg/dL (0.0-0.2); BILIRUBIN,TOTAL 0.3 mg/dL (0.2-1.0); TOTAL PROTEIN, SERUM 6.9 g/dL (6.4-8.2)
[2016-06-29] MEDS ORDERED: CEFTRIAXONE 1GM BAG (ER ONLY) 50 ML IV ONE (04:40)
[2016-06-29] MEDS ORDERED: SECONDARY IV SET 1 EA INFUS.SET MC ONE ×3 (04:40→11:18)
[2016-06-29] MEDS ORDERED: IV SET PRIMARY 1 EA INFUS.SET MC ONE (04:42)
--- NOTE | 2016-06-29 04:54 | NUR ---
MEDICATED PT ORDERED
[2016-06-29] MEDS ORDERED: CEFTRIAXONE 1GM BAG (ER ONLY) 1 GM/50 ML PIGGYBACK IV ONE (05:00)
[2016-06-29] MEDS ORDERED: IV NS 0.9% 500 ML BAG IV ONE ×2 (05:00→05:30)
--- NOTE | 2016-06-29 05:01 | NUR ---
REPORT GIVEN TO PHUC/OUTREACH ANALYST ON BEHALF OF PRIMARY NURSE LAITH.
[2016-06-29 05:03] LABS: ABG BASE EXCESS 10.7 mmol/L; ABG OXYGEN SATURATION 99.1 % (92.0-98.5); ABG PCO2 103.2 mmHg (35.0-45.0); ABG PH 7.229 (7.350-7.450); ABG PO2 240.1 mmHg (75.0-100.0); ABG TOTAL HEMOGLOBIN 12.4 G/dL (12.0-16.0); AaDO2 221.9 mmHg; MetHb 0.4 % (0.0-1.5); O2Hb 97.7 % (94.0-97.0); SITE, ABG Right Radial; VENT MODE, BG NRB 15L
--- NOTE | 2016-06-29 05:17 | NUR ---
TRANSPORTED PT TO ICU BED VIA GURNEY WITH RT AND EMT WITHOUT INCIDENT
--- NOTE | 2016-06-29 05:44 | NUR ---
TIRE SHOP MANAGER. ADMISSION. RECEIVED THE PT FROM ER [facility]IA [facility].ADMITTED FOR RESPIRATORY FAILURE, CHF. COMMANDER POLICE RESERVES SHOWING AFIB, PT WAKE, ALERT. DOES NOT FOLLOW COMMANDS. BIPAP ON. SETTINGS 20/5, RATE 16, FIO2 80%. SAT 98%. HOB ELEVATED. FC PATENT. URINE DRAINING. AFEBRILE. TURN AND REPOSITION Q2H. WILL CONTINUE TO MONITOR VITALS.
[2016-06-29] MEDS ORDERED: hydrALAZINE HCL IV 20 MG VIAL IV PRN (07:00)
[2016-06-29] MEDS ORDERED: MAG HYDROX/AL HYDROX/SIMETH 30 ML UDC PO PRN (07:00)
[2016-06-29] MEDS ORDERED: MAGNESIUM HYDROXIDE 30 ML UDC PO PRN (07:00)
[2016-06-29] MEDS ORDERED: MORPHINE SULFATE INJ 2 MG/ML DISP.SYRIN IV PRN (07:00)
[2016-06-29] MEDS ORDERED: ONDANSETRON HCL/PF 4 MG/2 ML VIAL IVP PRN (07:00)
[2016-06-29] MEDS ORDERED: Z GUARD REMEDY 2 OZ OINT TP PRN (07:00)
[2016-06-29] MEDS: PANTOPRAZOLE 40 MG TABLET.DR PO SCH (07:30)
--- NOTE | 2016-06-29 07:30 | NUR ---
ICU/RN: PT RECEIVED ON BIPAP, TOLERATING CURRENT SETTINGS; NO FACIAL GRIMACING NOTED, RESPONDS TO NAME AND TOUCH, HOWEVER REMAINS LETHARGIC. +1 PITTING EDEMA NOTED ON BILAT LOWER EXTREMITIES. IV HL ON L HAND AND L AC PATENT AND FLUSHED. FC DRAINING DARK YELLOW URINE TO GRAVITY. CONTROLLED A-FIB 80-90'S ON MONITOR. 0730 PO PROTONIX HELD DT PT LETHARGY. ALARM SOUNDS CHECKED AND AUDIBLE. WILL CONT TO MONITOR PT.
[2016-06-29] MEDS ORDERED: BUMETANIDE INJ 6 MG in IV NS 0.9% 36 ML IV ONE (08:00)
--- NOTE | 2016-06-29 08:00 | NUR ---
PT TAKEN OFF BIPAP AND PLACED ON 2L NC. WILL DO ABG ON THE NASAL CANNULA TO SEE IF PT TOLERATES OFF BIPAP.
[2016-06-29] MEDS ORDERED: IV SET PRIMARY PUMP SET 1 EA INFUS.SET MC ONE ×2 (08:15→11:18)
[2016-06-29 08:25] LABS: ABG BASE EXCESS 12.9 mmol/L; ABG OXYGEN SATURATION 96.1 % (92.0-98.5); ABG PCO2 70.8 mmHg (35.0-45.0); ABG PH 7.377 (7.350-7.450); ABG PO2 89.6 mmHg (75.0-100.0); ABG TOTAL HEMOGLOBIN 11.3 G/dL (12.0-16.0); AaDO2 41.1 mmHg; COHb 1.1 % (0.5-1.5); MetHb 0.8 % (0.0-1.5); O2Hb 94.3 % (94.0-97.0); SITE, ABG Right Radial; VENT MODE, BG NASAL CANNULA
[2016-06-29] MEDS: ENOXAPARIN SODIUM 30 MG/0.3 ML DISP.SYRIN SQ SCH (08:31)
[2016-06-29] MEDS ORDERED: LEVOFLOXACIN 750 MG /D5W 150ML 750 MG in PREMIX 1 EA IV SCH (10:30)
[2016-06-29] MEDS: IPRATROPIUM NEB FS 0.5 MG/2.5 ML AMPUL.NEB NEB SCH ×3 (11:13→19:53)
[2016-06-29] MEDS: ALBUTEROL FS 2.5 MG/3 ML VIAL.NEB NEB PRN ×3 (11:13→19:53)
[2016-06-29] MEDS: LEVOFLOXACIN 750 MG /D5W 150ML 750 MG in PREMIX 1 EA IV SCH (11:53)
[2016-06-29] MEDS: methylPREDNISolone SOD SUCC 40 MG/ML VIAL IV SCH ×2 (12:15→16:41)
--- NOTE | 2016-06-29 12:54 | NUR ---
ICU/RN: DR LOPEZ NOTIFIED OF PT A-FIB 130-140'S WITH PVC'S, ONLY RECEIVED CARDIZEM BOLUS IN ER. ALSO RECEIVED PRN HYDRALAZINE DOSE FOR SBP >160 MM/HG IN AM. NEW ORDERS FOR DIG NOTED AND CARRIED OUT.
[2016-06-29] MEDS ORDERED: DIGOXIN INJ 0.5 MG/2 ML AMPUL IV ONE (13:00)
[2016-06-29] MEDS: DIGOXIN INJ 0.5 MG/2 ML AMPUL IV SCH ×2 (13:00→18:29)
[2016-06-29] MEDS ORDERED: hydrALAZINE HCL 25 MG TABLET PO SCH (13:00)
--- NOTE | 2016-06-29 15:00 | NUR ---
ICU/RN: BED BATH RENDERED, PLACED ON KCI MATTRESS, WOUND CARE RENDERED. PT NOW AWAKE, RESPONSIVE, ORIENTED ONLY TO NAME, PLEASANTLY CONFUSED. FALL PRECAUTIONS IN PLACE. SNACK PROVIDED FOR PT, TOLERATED 50% OF MEAL, NO S/S ASPIRATION OBSERVED.
--- NOTE | 2016-06-29 19:16 | NUR ---
ICU/RN: PT IN BED, EASY TO AROUSE WITH NAME AND TOUCH, IV HL PATENT AND INTACT, BREATHING EVEN AND UNLABORED ON O2 2L/MIN VIA NC. FC DRAINING CLEAR YELLOW URINE TO GRAVITY. A-FIB 80-90'S ON MONITOR. CARE ENDORSED TO PM RN FOR DIGNA.
--- NOTE | 2016-06-29 20:30 | NUR ---
MANAGER PRACTICE DF RECEIVED PT TO ROOM #259 PT DISORIENTED,LETHARGIC. HX OF DEMENTIA. A/O PERSON ONLY.FOLLOWS SIMPLE COMMANDS.VSS. PT ON N/C@2LPM WITH O2SAT OF 98%.PT REQUIRED BIPAP SUPPORT AT TIME OF ADMISSION. PT TOLERATING N/C NO RESPIRATORY DISTRESS NOTED. VSS. PT NON VERBAL PT WITH GARBLED SPEECH PER REPORTS THIS IS PT,S BASELINE MENTAL STATUS. PT,S CODE STATUS DNR/DNI. ALL NEEDS ATTENDED TO.
--- NOTE | 2016-06-29 23:12 | NUR ---
PLASTER WHITTLER DF PT MORE AWAKE CONVERSES PT CONFUSED DOES NOT KNOW WHERE SHE IS. I REORIENTED PT TO PLACE,SITUATION. PT REMOVED LEFT WRIST IV TIP IN TACT SITE BENIGN. PT GOWN AND LINEN CHANGED SOILED WITH MINIMAL BLOOD LOSS 2ND REMOVED IV. I ATTEMPT 2ND IV INSERTION PT UNCOOPERATIVE AT THIS TIME. I WILL INSERT IV WHEN PT MORE COOPERATIVE. PT HAS PATENT IV TO LEFT AC. INSTRUCTED PT NOT TO REMOVE TUBES,IV ETC.VSS.NAD NOTED.
[2016-06-30] VITALS (29 sets, daily range): BP systolic 133–158; BP diastolic 58–110
[2016-06-30] MEDS: ALBUTEROL FS 2.5 MG/3 ML VIAL.NEB NEB PRN ×5 (00:07→14:56)
[2016-06-30] MEDS: IPRATROPIUM NEB FS 0.5 MG/2.5 ML AMPUL.NEB NEB SCH ×7 (00:07→23:24)
[2016-06-30] MEDS ORDERED: DIGOXIN INJ 0.5 MG/2 ML AMPUL IV SCH (01:00)
[2016-06-30] MEDS: DIGOXIN INJ 0.5 MG/2 ML AMPUL IV SCH (01:56)
--- NOTE | 2016-06-30 04:20 | NUR ---
INTEL ANALYST DF TOTAL AM CARE PROVIDED WITH FAIR TOLERANCE.NO BM NOTED. I ATTEMPTED TO PLACE IV TO RIGHT ARM PT REFUSED STATING "I DONT WANT IT I PULL IT OUT" PT HAS PATENT IV TO LEFT AC.VSS.NAD NOTED. PT CONFUSED. REALITY ORIENTATION PROVIDED.
[2016-06-30 05:19] LABS: BASOPHILS % (AUTO) 0.2 % (0.0-2.0); HEMATOCRIT 33 % (33-45); HEMOGLOBIN 10.8 g/dL (11.5-14.8); LYMPHOCYTES # (AUTO) 1.7 /CMM (0.8-4.8); MEAN CORPUSCULAR HEMOGLOBIN 30 PG (26.0-33.0); MEAN CORPUSCULAR HGB CONC 33 g/dl (31.0-36.0); MEAN CORPUSCULAR VOLUME 92 fL (82-100); MONOCYTES # (AUTO) 0.5 /CMM (0.1-1.30); MONOCYTES % (AUTO) 7.3 % (2.0-12.0); NEUTROPHILS # (AUTO) 4.3 /CMM (1.8-8.9); NEUTROPHILS % (AUTO) 66.5 % (43.0-81.0); PLATELET COUNT (AUTO) 299 /CMM (150-450); RDW COEFFICIENT OF VARIATION 15.1 (11.5-15.0); RED BLOOD CELL COUNT(AUTO) 3.57 MIL/uL (4.0-5.2); WHITE BLOOD COUNT (AUTO) 6.4 K/uL (4.3-11.0)
[2016-06-30 05:40] LABS: ALBUMIN 2.5 g/dL (3.4-5.0); BILIRUBIN,TOTAL 0.4 mg/dL (0.2-1.0); CALCIUM, SERUM 9.2 mg/dL (8.5-10.1); PHOSPHORUS 3.2 mg/dL (2.5-4.9); POTASSIUM 4.4 mmol/L (3.5-5.1); TOTAL PROTEIN, SERUM 6.5 g/dL (6.4-8.2); TROPONIN I 0.106 ng/mL (0.00-0.056)
[2016-06-30 05:50] LABS: THYROID STIMULATING HORMONE 1.978 uIU/mL (0.358-3.74)
--- NOTE | 2016-06-30 07:30 | NUR ---
ICU/RN: PT RECEIVED IN BED, ON O2 2L/MIN VIA NC, BREATHING EVEN AND UNLABORED, PT A&OX2, DROWSY, ABLE TO FOLLOW SIMPLE COMMANDS. IV HL ON L AC PATENT AND INTACT. ATTEMPTED TO START IV, PT BECAME VERBALLY ABUSIVE AND REFUSED INSERTION. WILL REATTEMPT AT LATER TIME. FC DRAINING WELL TO GRAVITY. WILL CONT TO MONITOR PT
[2016-06-30] MEDS: ACETAMINOPHEN 325 MG TABLET PO PRN (08:05)
[2016-06-30] MEDS: methylPREDNISolone SOD SUCC 40 MG/ML VIAL IV SCH ×3 (08:05→16:32)
[2016-06-30] MEDS: ENOXAPARIN SODIUM 30 MG/0.3 ML DISP.SYRIN SQ SCH (08:06)
[2016-06-30] MEDS: PANTOPRAZOLE 40 MG TABLET.DR PO SCH (08:06)
[2016-06-30] MEDS ORDERED: acetaZOLAMIDE SODIUM 500 MG/VIAL VIAL IV ONE (08:30)
[2016-06-30 09:30] LABS: ABG BASE EXCESS 16.8 mmol/L; ABG OXYGEN SATURATION 93.5 % (92.0-98.5); ABG PCO2 52.1 mmHg (35.0-45.0); ABG PH 7.522 (7.350-7.450); ABG PO2 67.3 mmHg (75.0-100.0); ABG TOTAL HEMOGLOBIN 10.9 G/dL (12.0-16.0); AaDO2 56.3 mmHg; COHb 0.7 % (0.5-1.5); MetHb 0.6 % (0.0-1.5); O2Hb 92.3 % (94.0-97.0); SITE, ABG Left Radial; VENT MODE, BG 1.5 LPM N/C
--- NOTE | 2016-06-30 10:00 | NUR ---
ICU/RN: DR NELSON AT THE BEDSIDE, NEURO STATUS DW . PT AWAKE, ORIENTED COMPARED TO YESTERDAY, HOWEVER PRESENTS WITH L SIDED WEAKNESS ON UPPER AND LOWER EXTREMITIES. LAST KNOWN WELL TIME UNKNOWN; PT NEURO STATUS WAS LETHARGIC, UNABLE TO SECONDARY TO RESP FAILURE. PT UNABLE TO RECALL HX OF CVA. IMAGING TESTS ORDERED - MD NOTIFIED THAT CT SCAN IS DOWN, RESULTS WILL BE DELAYED FOR CT HEAD AND ABD. NEW ORDERS NOTED AND CARRIED OUT.
--- NOTE | 2016-06-30 10:38 | NUR ---
ICU/RN: SPOKE WITH CAROLYNN, RX; F/U DELIVERY OF 0830 DIAMOX DOSE, PER RX, "IT IS ON THE WAY."
[2016-06-30] MEDS: DIGOXIN 0.125 MG TABLET PO SCH (12:47)
--- NOTE | 2016-06-30 19:10 | NUR ---
ICU/RN: PT REMAINS COMFORTABLE IN BED, NO DISTRESS NOTED, US TECH AT BEDSIDE FOR US CAROTIDS. FC DRAINING WELL TO GRAVITY. IV HL X2 PATENT AND INTACT. CARE ENDORSED TO PM RN FOR DIGNA
--- NOTE | 2016-06-30 21:30 | NUR ---
DIRECTOR OF EVENT SALES DF PT REFUSED LIPITOR AT 2200 PT STATING "LEAVE ME ALONE I JUST WANT TO SLEEP I DONT WANT PILLS RIGHT NOW". PT A/OX1-2. PT MOVES BUE WITH SOME LEFT ARM WEAKNESS NOTED. PT HAD CVA RULED OUT DURING DAY SHIFT PER NEUROLOGY/CT SCAN OF HEAD RESULTS. VSS. NAD NOTED.
[2016-06-30] MEDS: ATORVASTATIN 10 MG TABLET PO SCH (22:00)
[2016-06-30] MEDS ORDERED: PRAVASTATIN SODIUM 20 MG TABLET PO SCH (22:00)
[2016-07-01] VITALS (25 sets, daily range): BP systolic 124–161; BP diastolic 45–92
[2016-07-01] MEDS: IPRATROPIUM NEB FS 0.5 MG/2.5 ML AMPUL.NEB NEB SCH ×5 (02:29→20:05)
--- NOTE | 2016-07-01 04:15 | NUR ---
LEATHER COATER DF PT PROVIDED AM CARE WITH ASSISTANCE OF PRESTON DAVIDSON. PT STATED i WANT A FEMALE AND STUART PROVIDED AM BED BATH/CARE WITH FAIR TOLERANCE. VSS. PT UPSET SHE IS STILL IN THE HOSPITAL. I EXPLAINED POC TO PT. PT HAS POOR CONCENTRATION. I INFORMED PT MD WILL UPDATE HER DURING THE DAY TIME HOURS ON DISCHARGE PLANNING/POC.
[2016-07-01 05:23] LABS: BASOPHILS % (AUTO) 0.1 % (0.0-2.0); EOSINOPHILS % (AUTO) 0.5 % (0.0-6.0); HEMATOCRIT 33 % (33-45); HEMOGLOBIN 10.7 g/dL (11.5-14.8); LYMPHOCYTES # (AUTO) 1.2 /CMM (0.8-4.8); LYMPHOCYTES % (AUTO) 23.6 % (20.0-44.0); MEAN CORPUSCULAR HEMOGLOBIN 30 PG (26.0-33.0); MEAN CORPUSCULAR HGB CONC 33 g/dl (31.0-36.0); MEAN CORPUSCULAR VOLUME 92 fL (82-100); MONOCYTES # (AUTO) 0.4 /CMM (0.1-1.30); MONOCYTES % (AUTO) 7.5 % (2.0-12.0); NEUTROPHILS # (AUTO) 3.5 /CMM (1.8-8.9); NEUTROPHILS % (AUTO) 68.3 % (43.0-81.0); PLATELET COUNT (AUTO) 270 /CMM (150-450); RDW COEFFICIENT OF VARIATION 14.9 (11.5-15.0); RED BLOOD CELL COUNT(AUTO) 3.56 MIL/uL (4.0-5.2); WHITE BLOOD COUNT (AUTO) 5.2 K/uL (4.3-11.0)
[2016-07-01 05:52] LABS: ALBUMIN 2.4 g/dL (3.4-5.0); BILIRUBIN,TOTAL 0.4 mg/dL (0.2-1.0); CREATININE 0.8 mg/dL (0.6-1.3); MAGNESIUM 2.1 mg/dL (1.8-2.4); PHOSPHORUS 3.8 mg/dL (2.5-4.9); POTASSIUM 3.9 mmol/L (3.5-5.1); TOTAL PROTEIN, SERUM 6.2 g/dL (6.4-8.2)
[2016-07-01] MEDS ORDERED: acetaZOLAMIDE SODIUM 500 MG/VIAL VIAL IV ONE (06:30)
--- NOTE | 2016-07-01 06:44 | NUR ---
CALL WORKER PERSON DF MD LOPEZ [facility] ROUNDEMELY.ORDERS RECEIVED FOR DIAMOX.AWAITING PHARMACY VERIFICATION.VSS.NAD NOTED. Addendum: 07/01/16 at 0648 by ANA BOX RN CALL WORKER PERSON DF MED NOT AVAIL IN [facility] AWAITING PHARMACY VERIFICATION/AVAILABILITY.
[2016-07-01 07:36] LABS: IRON, SERUM 51 ug/dl (50-175); TOTAL IRON BINDING CAPACITY 147 ug/dl (250-450)
[2016-07-01 07:49] LABS: FERRITIN 90 ng/mL (8-388)
[2016-07-01] MEDS: PANTOPRAZOLE 40 MG TABLET.DR PO SCH (07:50)
--- NOTE | 2016-07-01 07:55 | NUR ---
STRAW HAT PRESSER: pt.is A/Ox1, c/o 3-06/27 left shoulder pain, arms/legs weak symmetric activity without significant different, O2 sat. WNL, afib control, SBP 120-160, waiting Diamox from pharmacy, no vomiting episodes last night, was oriented for POC, Tx, meds
[2016-07-01 08:08] LABS: *RAPID PLASMA REAGIN QUAL Non Reactive (Non Reactive)
[2016-07-01] MEDS: ASPIRIN 81 MG TAB.CHEW PO SCH (08:18)
[2016-07-01] MEDS: methylPREDNISolone SOD SUCC 40 MG/ML VIAL IV SCH ×3 (08:18→16:51)
[2016-07-01] MEDS: ACETAMINOPHEN 325 MG TABLET PO PRN (08:18)
[2016-07-01] MEDS: ENOXAPARIN SODIUM 30 MG/0.3 ML DISP.SYRIN SQ SCH (08:22)
[2016-07-01] MEDS: ALBUTEROL FS 2.5 MG/3 ML VIAL.NEB NEB PRN ×3 (08:31→20:05)
--- NOTE | 2016-07-01 10:04 | NUR ---
SENIOR SOFTWARE MANAGER: is in room, updated with pt.current condition, VS, I/O, neuro status, meds, ordered: fleet enema
[2016-07-01] MEDS ORDERED: MINERAL OIL 133 ML (PYXIS) 1 EA ENEMA RC ONE (10:30)
[2016-07-01] MEDS: LEVOFLOXACIN 750 MG /D5W 150ML 750 MG in PREMIX 1 EA IV SCH (10:41)
--- NOTE | 2016-07-01 11:00 | NUR ---
ORACLE ENDECA CONSULTANT: is in room, updated with pt.current condition, VS, O2sat., Bipap off over night by report, I/O, meds, see new orders
[2016-07-01] MEDS: DIGOXIN 0.125 MG TABLET PO SCH (13:19)
--- NOTE | 2016-07-01 16:45 | NUR ---
DNA ANALYST: pt.is in progress, no c/o any pain, A/Ox2, dementia, Afib controlled, O2sat.,BP WNL, oil enema given, no vomiting episodes, PM care done
--- NOTE | 2016-07-01 16:50 | NUR ---
ECONOMIC DEVELOPER: pt.refused for attempt to remove impacted stool manually
--- NOTE | 2016-07-01 17:10 | NUR ---
PRODUCT RESPONSIBILITY LIAISON: PM/skin care done, called to [facility] nurse for report, waiting back call
--- NOTE | 2016-07-01 18:00 | NUR ---
OIL PROCESSING TECHNICIAN: pt.was transferred to [facility] after full report for DE[facility] nurse, included 07/01/16 orders
--- NOTE | 2016-07-01 19:23 | NUR ---
received pt from icu .with dx of respiratory failure on 2lpm N.C NO C/O PAIN,NO S.S OF DISTRESS. I.V CDI AND PATENT.SAFETY MEASURES IN PLACE.WILL CONTINUE TO MONITOR FOR CHANGES.
--- NOTE | 2016-07-01 20:00 | NUR ---
STONE FABRICATOR NOTES: ASSUMED CARE OF PATIENT, AWAKE AND ALERT,OBTUNDED, NO PURPOSEFUL MOVEMENTS, OPENS EYES SPONTANEOUSLY. TRACH TO VENT, TOLERATING CURRENT VENT SETTING, O2 SAT 100%. LUNG SOUNDS COARSE THROUGHOUT. PATIENT WITH COPIOUS FROTHY WHITE ORAL SECRETION SUCTIONED OUT. IN-LINE TRACHEAL SUCTION WITH THICK YELLOWISH/GREEN TRACHEAL SECRETIONS SUCTIONED. PROGRAM DIRECTOR CABLE TELEVISION SHOWS SINUS RHYTHM, PULSES PALPABLE, PATIENT WITH GENERALIZED EDEMA. VITAL SIGNS STABLE. SKIN WARM AND DRY. PATIENT WITH MULTIPLE WOUNDS ON MOST BONY PROMINENCE, INCLUDING ELBOW,BUTTOCKS, RT HEEL UNSTAGEABLE WITH DRESSING IN PLACE. TUBEFEEDING IN PROGRESS VIA GTUBE. IV ACCESS INTACT, PATENT. PATIENT REPOSITIONED AND TURNED IN BED. MD ORDERS AND PATIENT'S RECORD REVIEWED. Addendum: 07/02/16 at 0351 by JAK MILLS RN WRONG PATIENT
--- NOTE | 2016-07-01 20:00 | NUR ---
CUT OFF SAWYER NOTES: PATIENT CARE ASSUMED. ALERT, AWAKE ORIENTED TO PERSON AND PLACE. SPEECH CLEAR, MOVES ALL EXTREMITIES WITH PURPOSE, BUT HAS GENERALIZED WEAKNESS. ON O2 AT 2LPM VIA NASAL CANULA,O2 SAT AVERAGES 96% TO 99%. LUNG SOUNDS DIMINISHED THROUGHOUT. WATCH BAND ASSEMBLER SHOWS ATRIAL FIBRILLATION AT CONTROLLED RATE OF 70'S. PULSES PALPABLE AND EQUAL BIALT. PATIENT WITH TRACE GENERALIZED EDEMA. CAPILLARY REFILL LESS THAN 3 SECONDS. IV ACCESS TO LEFT AC AND RT FOREARM INFILTRATED, REMOVED, WILL RE-ESTABLISH NEW IV SITE. SKIN WARM AND DRY, COLOR PINK. PATIENT WITH IMPROVING STAGE II ULCER ON SACRUM. REPOSITIONED AND TURNED IN BED FOR COMFORT. DENIES PAIN OR DISCOMFORT. MD ORDERS AND PATIENT RECORDS REVIEWED.
[2016-07-01] MEDS: ATORVASTATIN 10 MG TABLET PO SCH (21:49)
[2016-07-02] VITALS (8 sets, daily range): BP systolic 99–155; BP diastolic 57–72
--- NOTE | 2016-07-02 | NUR ---
NO CHANGE IN CLINICAL CONDITION, PATIENT AWAKE WATCHING TV, NO ACUTE RESPIRATORY DISTRESS NOTED. VITAL SIGNS STABLE. FOOD SERVICE SPECIALIST CONTINUES IN AFIB AT CONTROLLED RATE OF 70'S. DENIES PAIN OR DISCOMFORT.
[2016-07-02] MEDS: IPRATROPIUM NEB FS 0.5 MG/2.5 ML AMPUL.NEB NEB SCH ×7 (00:22→23:30)
--- NOTE | 2016-07-02 05:00 | NUR ---
MS RN NOTES PTS OFFERED BED BATH OR MORNING CARE ,AND LAB WORKS, PTS REFUSED AT THIS TIME, SHE WANT IT DONE LATER . ENDORSE TO MORNING SHIFT PTS IS ALERT AND ORIENTED. AND ALSO FOR CONTINUITY OF CARE , V/S STABLE AFEBRILE NO SIGNIFICANT CHANGE NOTED AT THIS TIME,
[2016-07-02] MEDS: PANTOPRAZOLE 40 MG TABLET.DR PO SCH (05:25)
[2016-07-02 06:51] LABS: BASOPHILS % (AUTO) 0.2 % (0.0-2.0); EOSINOPHILS % (AUTO) 0.3 % (0.0-6.0); HEMATOCRIT 33 % (33-45); HEMOGLOBIN 10.8 g/dL (11.5-14.8); LYMPHOCYTES # (AUTO) 0.9 /CMM (0.8-4.8); LYMPHOCYTES % (AUTO) 18.9 % (20.0-44.0); MEAN CORPUSCULAR HEMOGLOBIN 30 PG (26.0-33.0); MEAN CORPUSCULAR HGB CONC 33 g/dl (31.0-36.0); MEAN CORPUSCULAR VOLUME 91 fL (82-100); MONOCYTES # (AUTO) 0.5 /CMM (0.1-1.30); MONOCYTES % (AUTO) 10.7 % (2.0-12.0); NEUTROPHILS # (AUTO) 3.3 /CMM (1.8-8.9); NEUTROPHILS % (AUTO) 69.9 % (43.0-81.0); PLATELET COUNT (AUTO) 280 /CMM (150-450); RDW COEFFICIENT OF VARIATION 14.4 (11.5-15.0); RED BLOOD CELL COUNT(AUTO) 3.59 MIL/uL (4.0-5.2); WHITE BLOOD COUNT (AUTO) 4.8 K/uL (4.3-11.0)
--- NOTE | 2016-07-02 06:51 | NUR ---
NEW IV INSERTED IN LEFT HAND #22 G SALINE LOCK. PATIENT TOLERATED PROCEDURE WELL. PATIENT AWAKE, DROWSY, NO ACUTE DISTRESS NOTED. VITAL SIGNS STABLE. NO ADVERSE CHANGES IN CLINICAL CONDITION NOTED THROUGHOUT SHIFT.
[2016-07-02 07:10] LABS: ALBUMIN 2.4 g/dL (3.4-5.0); BILIRUBIN,TOTAL 0.3 mg/dL (0.2-1.0); CALCIUM, SERUM 9.1 mg/dL (8.5-10.1); CREATININE 0.9 mg/dL (0.6-1.3); MAGNESIUM 2.1 mg/dL (1.8-2.4); POTASSIUM 3.6 mmol/L (3.5-5.1); TOTAL PROTEIN, SERUM 6.1 g/dL (6.4-8.2)
[2016-07-02] MEDS: methylPREDNISolone SOD SUCC 40 MG/ML VIAL IV SCH ×3 (09:17→17:41)
[2016-07-02] MEDS: ENOXAPARIN SODIUM 30 MG/0.3 ML DISP.SYRIN SQ SCH (09:18)
[2016-07-02] MEDS: ASPIRIN 81 MG TAB.CHEW PO SCH (09:18)
[2016-07-02] MEDS: hydrALAZINE HCL 50 MG TABLET PO SCH ×3 (10:16→17:42)
[2016-07-02] MEDS: ALBUTEROL FS 2.5 MG/3 ML VIAL.NEB NEB PRN (11:55)
[2016-07-02] MEDS: DIGOXIN 0.125 MG TABLET PO SCH (12:52)
--- NOTE | 2016-07-02 20:00 | NUR ---
MS RN NOTES RECEIVED PTS ON BED AWAKE ALERT AND VERBALLY RESPONSIVE , NO SOB NO DISTRESS NOTED DENIES PAIN AT THIS TIME. V/S STABLE AFEBRILE . ALL DUE MEDS GIVEN ORDERED , ALL NEEDS ATTENDED TOO CALL LIGHT WITHIN REACH ,PTS ON HEPLOCK ON LEFT HAND INTACT AND PATENT .WITH F/C INTACT AND PATENT DRAINING WITH YELLOWISH URINE OUTPUT , WILL KEPT PTS CLEAN DRY AND COMFORTABLE.
[2016-07-02] MEDS: ATORVASTATIN 10 MG TABLET PO SCH (21:11)
[2016-07-03] MEDS: IPRATROPIUM NEB FS 0.5 MG/2.5 ML AMPUL.NEB NEB SCH ×6 (03:35→23:30)
[2016-07-03 04:00] VITALS: BP 130/76
--- NOTE | 2016-07-03 07:00 | NUR ---
RN INTIAL NOTE RECEIVED PT FROM PM NURSE. A/O 2-3 . NC 2L NO S/S ACUTE SOB. F/C INTACT. IV L HAND #22G. ALL SAFTEY MEASURES IN PLACE. PT CLEAN WARM AND DRY. WILL CONTINUE TO MONITOR CLOSELY.
[2016-07-03 08:00] VITALS: BP 139/79
[2016-07-03] MEDS: hydrALAZINE HCL 50 MG TABLET PO SCH ×3 (09:13→16:40)
[2016-07-03] MEDS: ASPIRIN 81 MG TAB.CHEW PO SCH (09:14)
[2016-07-03] MEDS: PANTOPRAZOLE 40 MG TABLET.DR PO SCH (09:14)
[2016-07-03] MEDS: methylPREDNISolone SOD SUCC 40 MG/ML VIAL IV SCH ×3 (09:14→16:50)
[2016-07-03] MEDS: ENOXAPARIN SODIUM 30 MG/0.3 ML DISP.SYRIN SQ SCH (09:23)
[2016-07-03 10:01] LABS: BASOPHILS # (AUTO) 0.1 /CMM (0.0-0.2); BASOPHILS % (AUTO) 0.6 % (0.0-2.0); EOSINOPHILS % (AUTO) 0.1 % (0.0-6.0); HEMATOCRIT 35 % (33-45); HEMOGLOBIN 11.3 g/dL (11.5-14.8); LYMPHOCYTES # (AUTO) 2.3 /CMM (0.8-4.8); LYMPHOCYTES % (AUTO) 23.4 % (20.0-44.0); MEAN CORPUSCULAR HEMOGLOBIN 30 PG (26.0-33.0); MEAN CORPUSCULAR HGB CONC 32 g/dl (31.0-36.0); MEAN CORPUSCULAR VOLUME 92 fL (82-100); MONOCYTES # (AUTO) 0.8 /CMM (0.1-1.30); MONOCYTES % (AUTO) 8.7 % (2.0-12.0); NEUTROPHILS # (AUTO) 6.5 /CMM (1.8-8.9); NEUTROPHILS % (AUTO) 67.2 % (43.0-81.0); PLATELET COUNT (AUTO) 197 /CMM (150-450); RDW COEFFICIENT OF VARIATION 14.5 (11.5-15.0); RED BLOOD CELL COUNT(AUTO) 3.83 MIL/uL (4.0-5.2); WHITE BLOOD COUNT (AUTO) 9.7 K/uL (4.3-11.0)
[2016-07-03] MEDS ORDERED: SECONDARY IV SET 1 EA INFUS.SET MC ONE (10:55)
[2016-07-03 11:08] LABS: CALCIUM, SERUM 9.3 mg/dL (8.5-10.1); CREATININE 0.8 mg/dL (0.6-1.3); PHOSPHORUS 2.7 mg/dL (2.5-4.9); POTASSIUM 3.7 mmol/L (3.5-5.1)
[2016-07-03] MEDS: LEVOFLOXACIN 750 MG /D5W 150ML 750 MG in PREMIX 1 EA IV SCH (11:09)
[2016-07-03] MEDS: POTASSIUM CHLORIDE 20 MEQ TAB.PRT.SR PO SCH ×3 (12:52→17:15)
[2016-07-03] MEDS: DIGOXIN 0.125 MG TABLET PO SCH (12:52)
[2016-07-03] MEDS: FUROSEMIDE 100 MG/10 ML VIAL IV SCH ×3 (14:47→20:23)
[2016-07-03 16:00] VITALS: BP 137/65
[2016-07-03] MEDS: ACETAMINOPHEN 325 MG TABLET PO PRN (16:50)
--- NOTE | 2016-07-03 16:50 | NUR ---
RN NOTE PT C/O PAIN TYLENOL GIVEN PO.
--- NOTE | 2016-07-03 19:26 | NUR ---
RN CLOSING NOTE A/O 2. NC 2L NO S/S ACUTE SOB. F/C INTACT. IV R WRIST #22G. ALL SAFETY MEASURES IN PLACE. PT CLEAN WARM AND DRY. ALL MEDICATIONS GIVEN , ALL ORDERS CARRIED OUT. REPORT GIVEN TO PM NURSE.
--- NOTE | 2016-07-03 19:30 | NUR ---
RN OPENING NOTES; RECEIVED PT ON BED AWAKE ALOX2 AND VERBALLY RESPONSIVE. ON O2 VIA NC AT 2LPM TOLERATED WELL NOT IN APPARENT DISTRESS. IV ACCESS ON R WRIST G22 INTACT. WITH FC INTACT DRAINING TO A CLOSED SYSTEM. ASPIRATION PREC OBSERVED. WITH COMPLAINTS OF PAIN ON LOWER EXTREMITIES, TO GIVE PRN PAIN MEDS. CALL LIGHT WITHIN REACH, SAFETY MEASURES ENSURED. MONITORED ACCORDINGLY.
[2016-07-03] MEDS: ALBUTEROL FS 2.5 MG/3 ML VIAL.NEB NEB PRN (19:53)
[2016-07-03 20:00] VITALS: BP 121/60
--- NOTE | 2016-07-03 20:15 | NUR ---
RN NTOES: PT COMPLAINING OF LOWER LEG PAIN AND PAIN ON LEFT TRUNKAL AREA. PATIENT ATTEMPTED TO REPOSITION AND PER PT TYLENOL IS NOT WORKING. RELAYED TO [facility] CONSULTING PROPERTY MANAGER RE PT'S CONCERNS, WITH ORDERS GIVEN FOR MORPHINE SULFATE 2MG IV Q3H PRN. NOTED AND CARRIED OUT. PATIENT MADE AWARE. MONITORED PT FOR RESPONSE TO PAIN MEDS.
[2016-07-03] MEDS ORDERED: MORPHINE SULFATE INJ 2 MG/ML DISP.SYRIN IV PRN (20:30)
[2016-07-03] MEDS ORDERED: MORPHINE SULFATE INJ 2 MG/ML DISP.SYRIN ONE (21:33)
[2016-07-03] MEDS: ATORVASTATIN 10 MG TABLET PO SCH (21:38)
[2016-07-04] MEDS: IPRATROPIUM NEB FS 0.5 MG/2.5 ML AMPUL.NEB NEB SCH ×4 (02:39→15:33)
[2016-07-04 04:00] VITALS: BP 103/49
[2016-07-04] MEDS ORDERED: IV NS 0.9% 250 ML IV ONE (05:04)
[2016-07-04] MEDS ORDERED: IV SET PRIMARY PUMP SET 1 EA INFUS.SET MC ONE (06:03)
--- NOTE | 2016-07-04 06:42 | NUR ---
RN CLOSING NOTES: PT REMAINED IN BED RESTING WELL, NOT IN APPARENT DISTRESS. KEPT ON O2 THERAPY, TOLERATED WELL. IV ACCESS REMAINED INTACT. SKIN CARE AND SKIN TREATMENT RENDERED. SAFETY MEASURES ENSURED. CALL LIGHT WITHIN REACH. NO FURTHER COMPLAINTS OF PAIN. CONTINUOUSLY MONITORED ACCORDINGLY. TO ENDORSE TO AM SHIFT RN.
--- NOTE | 2016-07-04 07:00 | NUR ---
RN NOTES; RECEIVED PT ON BED A/Ox2 , RESPIRATION EVEN AND UNLABORED, ON O2 2LPM , NO SOB NOTED, R WRIST IV SITED G22 CDI, PALUMBO TO DRAINING TO GRAVITY WELL , HOB ELEVATED , SR UP x3, FC INTACT CALL LIGHT WITHIN EASY REACH, SAFETY MEASURES ENSURED. CONTINUE TO MONITOR PT CLOSELY AND NOTIFY MD FOR ANY SIGNIFICANT CHANGES .
[2016-07-04 08:00] VITALS: BP 109/52
[2016-07-04] MEDS: ASPIRIN 81 MG TAB.CHEW PO SCH (08:14)
[2016-07-04] MEDS: hydrALAZINE HCL 50 MG TABLET PO SCH ×3 (08:15→13:55)
[2016-07-04] MEDS: PANTOPRAZOLE 40 MG TABLET.DR PO SCH (08:15)
[2016-07-04] MEDS: methylPREDNISolone SOD SUCC 40 MG/ML VIAL IV SCH ×3 (08:16→13:56)
[2016-07-04] MEDS: ENOXAPARIN SODIUM 30 MG/0.3 ML DISP.SYRIN SQ SCH (08:17)
[2016-07-04 09:50] LABS: ABG OXYGEN SATURATION 96.8 % (92.0-98.5); ABG PCO2 48.7 mmHg (35.0-45.0); ABG PH 7.474 (7.350-7.450); ABG PO2 87.9 mmHg (75.0-100.0); ABG TOTAL HEMOGLOBIN 12.2 G/dL (12.0-16.0); AaDO2 54.3 mmHg; COHb 0.7 % (0.5-1.5); MetHb 0.6 % (0.0-1.5); O2Hb 95.5 % (94.0-97.0); SITE, ABG Right Radial; VENT MODE, BG 2LNC
[2016-07-04] MEDS ORDERED: FUROSEMIDE 40 MG TABLET PO SCH (10:30)
[2016-07-04] MEDS ORDERED: ALBUT2 NEB (10:47)
[2016-07-04] MEDS ORDERED: POTA10CA43 PO (10:47)
[2016-07-04] MEDS ORDERED: PRED20TA PO (10:47)
[2016-07-04] MEDS ORDERED: Ipratropium Bromide NEB (10:47)
[2016-07-04] MEDS ORDERED: PANT40TA2 PO (10:47)
[2016-07-04] MEDS ORDERED: LEVO750T21 PO (10:47)
[2016-07-04] MEDS ORDERED: ASPI81TA2 PO (10:47)
[2016-07-04] MEDS ORDERED: PRED50TA PO (10:47)
[2016-07-04] MEDS ORDERED: Digoxin PO (10:47)
[2016-07-04] MEDS ORDERED: ATOR10TA PO (10:47)
[2016-07-04] MEDS ORDERED: FURO-144 PO (10:47)
[2016-07-04] MEDS ORDERED: ENOX30DI SQ (10:47)
[2016-07-04] MEDS: ALBUTEROL FS 2.5 MG/3 ML VIAL.NEB NEB PRN (10:56)
[2016-07-04] MEDS: DIGOXIN 0.125 MG TABLET PO SCH ×2 (13:00→13:56)
--- NOTE | 2016-07-04 13:00 | NUR ---
RN NOTES PT IS CLEARED BY DR FUENTES TO BE DISCHARGED , DR NELSON NOTIFIED
--- NOTE | 2016-07-04 15:05 | NUR ---
RN NOTES [facility] DISCONTINUED PER DR OMAR AL. REPORT GIVEN TO NATHAN NOBLE AT [facility]. PT PULLED HER HEP LOCK OUT .
[2016-07-04 16:00] VITALS: BP 109/51
--- NOTE | 2016-07-04 16:21 | NUR ---
RN NOTES PT'S BACK BRACE AND REPORT GIVEN TO EMT PERSONAL.
[2016-07-04 16:36] LABS: BASOPHILS % (AUTO) 0.3 % (0.0-2.0); HEMATOCRIT 37 % (33-45); HEMOGLOBIN 12.1 g/dL (11.5-14.8); LYMPHOCYTES # (AUTO) 0.9 /CMM (0.8-4.8); LYMPHOCYTES % (AUTO) 11.7 % (20.0-44.0); MEAN CORPUSCULAR HEMOGLOBIN 30 PG (26.0-33.0); MEAN CORPUSCULAR HGB CONC 33 g/dl (31.0-36.0); MEAN CORPUSCULAR VOLUME 90 fL (82-100); MONOCYTES # (AUTO) 0.5 /CMM (0.1-1.30); MONOCYTES % (AUTO) 6.9 % (2.0-12.0); NEUTROPHILS % (AUTO) 81.1 % (43.0-81.0); PLATELET COUNT (AUTO) 322 /CMM (150-450); RDW COEFFICIENT OF VARIATION 14.5 (11.5-15.0); RED BLOOD CELL COUNT(AUTO) 4.09 MIL/uL (4.0-5.2); WHITE BLOOD COUNT (AUTO) 7.4 K/uL (4.3-11.0)
[2016-07-04] MEDS: ACETAMINOPHEN 325 MG TABLET PO PRN (16:42)
--- NOTE | 2016-07-04 16:44 | NUR ---
RN NOTES PT LEFT THE FLOOR TO MAIN ENTRANCE VIA AMBULANCE TO [facility] IN STABLE CONDITION , NO DISTRESS NOTED ,
[2016-07-04 16:57] LABS: CALCIUM, SERUM 8.9 mg/dL (8.5-10.1); CREATININE 0.9 mg/dL (0.6-1.3); MAGNESIUM 1.8 mg/dL (1.8-2.4); PHOSPHORUS 2.1 mg/dL (2.5-4.9); POTASSIUM 3.4 mmol/L (3.5-5.1)
== END 2016-07-04 17:00 | DRG 194 ==
LOC: ER 03:43 → ICU 04:18 → TELE1 07-01 18:11 → MEDSG1 07-02 18:27
PROVIDERS: ADMIT Nurse Practitioner Acute Care; ATTEND Nurse Practitioner Acute Care
PROC: 5A09357 Assistance with Respiratory Ventilation, Less than 24 Consecutive Hours, Continuous Positive Airway Pressure (ICD-10-PCS; principal; 2016-06-29)
DX: I13.0 Hypertensive heart and chronic kidney disease with heart failure and stage 1 through stage 4 chronic kidney disease, or unspecified chronic kidney disease (principal); N17.0 Acute kidney failure with tubular necrosis; J69.0 Pneumonitis due to inhalation of food and vomit; I21.4 Non-ST elevation (NSTEMI) myocardial infarction; J96.01 Acute respiratory failure with hypoxia; J96.02 Acute respiratory failure with hypercapnia; G93.41 Metabolic encephalopathy; E87.0 Hyperosmolality and hypernatremia; J90 Pleural effusion, not elsewhere classified; I95.9 Hypotension, unspecified; D68.59 Other primary thrombophilia; J44.0 Chronic obstructive pulmonary disease with (acute) lower respiratory infection; I50.33 Acute on chronic diastolic (congestive) heart failure; I48.2 Chronic atrial fibrillation; R53.2 Functional quadriplegia; E87.3 Alkalosis; E44.0 Moderate protein-calorie malnutrition; E66.2 Morbid (severe) obesity with alveolar hypoventilation; J44.1 Chronic obstructive pulmonary disease with (acute) exacerbation; E78.5 Hyperlipidemia, unspecified; Z86.73 Personal history of transient ischemic attack (TIA), and cerebral infarction without residual deficits; N18.9 Chronic kidney disease, unspecified; Z85.42 Personal history of malignant neoplasm of other parts of uterus; Z90.710 Acquired absence of both cervix and uterus; Z87.11 Personal history of peptic ulcer disease; K21.9 Gastro-esophageal reflux disease without esophagitis; F03.90 Unspecified dementia, unspecified severity, without behavioral disturbance, psychotic disturbance, mood disturbance, and anxiety; Z66 Do not resuscitate; Q85.9 Phakomatosis, unspecified; M19.90 Unspecified osteoarthritis, unspecified site; K56.41 Fecal impaction; M48.56XA Collapsed vertebra, not elsewhere classified, lumbar region, initial encounter for fracture; T14.8 Other injury of unspecified body region; X58.XXXA Exposure to other specified factors, initial encounter; Y93.9 Activity, unspecified; Y92.129 Unspecified place in nursing home as the place of occurrence of the external cause
CPT/HCPCS: 31720; 36415; 36600; 70450-TC; 71010-TC; 76700-TC; 80048-TC; 80053-TC; 80061-TC; 80076-TC; 82728-TC; 82746; 82803-TC; 82962-TC; 83540-TC; 83605-TC; 83735-TC; 83880; 84100-TC; 84439-TC; 84443-TC; 84481; 84484-TC; 85025-TC; 85652-TC; 85730-TC; 86592; 87040-TC; 87081-TC; 93880-TC; 94660; 94799-TC; 97001-TC; A4216; A4606; J0360; J0696; J1120; J1160; J1650; J1940; J1956; J2270; J2405; J2920; J3490; J7050; Z7610

== ENCOUNTER 2016-10-16 22:59 | Inpatient (IN) | payer MEDICARE, MEDICAID ==
[~2016-10-16] VITALS: Ht 175.3 cm; Wt 64.9 kg
[~2016-10-16 22:59] MED LIST changes: +ALBUT2 NEB; +ASPI81TA2 PO; +ATOR10TA PO; +CRAN500C5 PO; +Digoxin PO; +ENOX30DI SQ; +FURO-144 PO; +HYDR-3652 PO; +Ipratropium Bromide NEB; +LEVO750T21 PO; +MAGN400O6 PO; +NA P133E RC; +PANT40TA2 PO; +POTA10CA43 PO; +PRED20TA PO; +PRED50TA PO; +PROHEAL PO; +TYL2T PO
--- NOTE | 2016-10-16 23:20 | NUR ---
PT ALTERED, PT BIBA FROM SENIOR CARE, PER EMS, PT WAS ALTERED AT SENIOR CARE AND O2 SAT WAS LOW, PT LUNGS ARE TIGHT AND PT PUT ON BIPAP, RT AT BEDSIDE, IV PLACED AND LABS DRAWN, PT FAMILY AT BEDSIDE, PT ON MONITOR, IN GOWMD Mckayla AT BEDSIDE, WILL CONTINUE TO MONITOR.
[2016-10-16] MEDS ORDERED: ALBUTEROL FS 2.5 MG/0.5 ML VIAL.NEB ONE (23:21)
[2016-10-16] MEDS ORDERED: IPRATROPIUM NEB FS 0.5 MG/2.5 ML AMPUL.NEB ONE (23:21)
[2016-10-16] MEDS ORDERED: IPRATROPIUM NEB FS 0.5 MG/2.5 ML AMPUL.NEB NEB ONE (23:30)
[2016-10-16] MEDS ORDERED: DEXAMETHASONE SOD PHOSPHATE 10 MG/ML VIAL IV ONE (23:30)
[2016-10-16] MEDS ORDERED: ALBUTEROL FS 2.5 MG/3 ML VIAL.NEB NEB ONE (23:30)
[2016-10-16 23:33] VITALS: BP 190/115
[2016-10-16 23:43] LABS: BASOPHILS % (AUTO) 0.3 % (0.0-2.0); HEMATOCRIT 45 % (33-45); HEMOGLOBIN 14.2 g/dL (11.5-14.8); LYMPHOCYTES % (AUTO) 11.1 % (20.0-44.0); MEAN CORPUSCULAR HEMOGLOBIN 29 PG (26.0-33.0); MEAN CORPUSCULAR HGB CONC 32 g/dl (31.0-36.0); MEAN CORPUSCULAR VOLUME 91 fL (82-100); MONOCYTES # (AUTO) 0.4 /CMM (0.1-1.30); MONOCYTES % (AUTO) 4.9 % (2.0-12.0); NEUTROPHILS # (AUTO) 7.4 /CMM (1.8-8.9); NEUTROPHILS % (AUTO) 83.7 % (43.0-81.0); PLATELET COUNT (AUTO) 313 /CMM (150-450); RDW COEFFICIENT OF VARIATION 16.4 (11.5-15.0); RED BLOOD CELL COUNT(AUTO) 4.91 MIL/uL (4.0-5.2); WHITE BLOOD COUNT (AUTO) 8.8 K/uL (4.3-11.0)
[2016-10-16 23:49] LABS: ABG BASE EXCESS 5.6 mmol/L; ABG PCO2 82.8 mmHg (35.0-45.0); ABG PH 7.257 (7.350-7.450); ABG PO2 71.3 mmHg (75.0-100.0); COHb 1.1 % (0.5-1.5); MetHb 0.5 % (0.0-1.5); O2Hb 90.5 % (94.0-97.0); PEEP,BG 5 cm H2O; VENT MODE, BG CPAP
[2016-10-16 23:52] LABS: CALCIUM, SERUM 9.9 mg/dL (8.5-10.1); CARBON DIOXIDE 38 mmol/L (21-32); CHLORIDE 103 mmol/L (98-107); CREATININE 1.1 mg/dL (0.6-1.3); GLUCOSE 170 mg/dL (74-106); POTASSIUM 3.3 mmol/L (3.5-5.1); SODIUM SERUM 145 mmol/L (136-145); UREA NITROGEN, BLOOD 21 mg/dL (7-18)
[2016-10-16] MEDS ORDERED: DOXYCYCLINE 100 MG VIAL ONE (23:53)
[2016-10-16] MEDS ORDERED: DEXAMETHASONE SOD PHOSPHATE 4 MG/ML VIAL ONE (23:53)
[2016-10-16 23:56] LABS: INR 1.06 (0.87-1.13); PROTHROMBIN TIME 11.4 SECS (9.5-12.7)
[2016-10-17] MEDS ORDERED: DOXYCYCLINE 100 MG in IV D5W 100 ML IV ONE ×2
[2016-10-17 00:05] LABS: TROPONIN I 0.208 ng/mL (0.00-0.056)
[2016-10-17 00:08] LABS: ALANINE AMINOTRANSFERASE 123 U/L (12-78); ALBUMIN 3.2 g/dL (3.4-5.0); ALKALINE PHOSPHATASE 78 U/L (46-116); ASPARTATE AMINOTRANSFERASE 182 U/L (15-37); B-TYPE NATRIURETIC PEPTIDE 24209 PG/ML (0-125); BILIRUBIN,DIRECT 0.4 mg/dL (0.0-0.2); BILIRUBIN,TOTAL 0.8 mg/dL (0.2-1.0); TOTAL PROTEIN, SERUM 7.2 g/dL (6.4-8.2)
--- NOTE | 2016-10-17 00:36 | NUR ---
PAGED ROSALIE VALENTINO NP FOR PANEL ADMISSION
[2016-10-17] MEDS ORDERED: FUROSEMIDE 40 MG/4 ML VIAL ONE (00:45)
[2016-10-17] MEDS ORDERED: ASPIRIN 300 MG/SUPP.RECT RC ONE ×2 (00:45→01:00)
[2016-10-17] MEDS ORDERED: NITROGLYCERIN 0.4 MG/TAB BOTTLE ONE (00:45)
[2016-10-17] MEDS ORDERED: FUROSEMIDE 40 MG/4 ML VIAL IV ONE (01:00)
[2016-10-17] MEDS ORDERED: NITROGLYCERIN 0.4 MG/TAB BOTTLE SL PRN (01:00)
--- NOTE | 2016-10-17 01:00 | NUR ---
PT RESTING IN BED ON BI-PAP, PT ON MONITOR, PT BAD A BOWEL MOVEMENT AND WAS CLEANED UP AND CHANGED, MADE AWARE WILL CONTINUE TO MONITOR.
[2016-10-17] MEDS ORDERED: ACETAMINOPHEN 325 MG TABLET PO PRN (01:30)
[2016-10-17] MEDS ORDERED: MAGNESIUM HYDROXIDE 30 ML UDC PO PRN (01:30)
[2016-10-17] MEDS ORDERED: POTASSIUM CHLORIDE 20 MEQ TAB.PRT.SR PO ONE (01:30)
[2016-10-17] MEDS ORDERED: MAG HYDROX/AL HYDROX/SIMETH 30 ML UDC PO PRN (01:30)
[2016-10-17] MEDS ORDERED: Z GUARD REMEDY 2 OZ OINT TP PRN (01:30)
[2016-10-17] MEDS ORDERED: HYDROCODONE/APAP 5/325MG 1 EACH TABLET PO PRN (01:30)
[2016-10-17] MEDS ORDERED: ONDANSETRON HCL/PF 4 MG/2 ML VIAL IVP PRN (01:30)
[2016-10-17] MEDS: IPRATROPIUM NEB FS 0.5 MG/2.5 ML AMPUL.NEB NEB SCH ×4 (01:30→19:56)
[2016-10-17] MEDS: ALBUTEROL FS 2.5 MG/0.5 ML VIAL.NEB NEB SCH ×4 (01:30→19:56)
[2016-10-17] MEDS ORDERED: NA PHOS,M-B/NA PHOS,DI-BA 1 EA ENEMA RC PRN (01:30)
--- NOTE | 2016-10-17 01:30 | NUR ---
RN NOTES ADMITTED AN 81 YR OLD FEMALE FROM ER VIA STRETCHER WITH DX OF RESPIRATORY FAILURE. PATIENT HAS ALTERED MENTAL STATUS. INCONTINENT OF BOWEL AND BLADDER FUNCTION. NO RESPIRATORY DISTRESS OR SHORTNESS OF BREATH, ON BIPAP TOLERATING WELL. IV SITE ON RIGHT WRIST PATENT AND INTACT FLUSHED WITH SALINE. SKIN ASSESSMENT DONE. VITAL SIGNS TAKEN. WILL CONTINUE TO MONITOR.
[2016-10-17 01:40] VITALS: BP 142/70
--- NOTE | 2016-10-17 01:50 | NUR ---
RN NOTES NOTED WITH ORDER OF K DUR 20MEQ PO AND WITH HIGH LAB VALUE FOR LACTIC ACID 3.O, CALLED , SPOKE WITH DR. ROSALIE Block. CLARIFIED ORDER FOR POTASSIUM, HOLD POTASSIUM ORDER UNTIL NEXT LEVEL OF POTASSIUM IS OBTAINED IN AM. FOR LACTIC ACID, HAVE ANOTHER BLOOD DRAW FOR LACTIC ACID LEVEL IN AM. NOTED AND CARRIED OUT.
[2016-10-17] MEDS ORDERED: LEVOFLOXACIN 750 MG /D5W 150ML 750 MG in PREMIX 1 EA IV SCH (03:00)
[2016-10-17 04:00] VITALS: BP 154/90
[2016-10-17] MEDS ORDERED: LEVOFLOXACIN 750 MG /D5W 150ML 150 ML IV ONE (04:05)
[2016-10-17 06:40] LABS: HEMATOCRIT 39 % (33-45); HEMOGLOBIN 12.6 g/dL (11.5-14.8); LYMPHOCYTES # (AUTO) 0.5 /CMM (0.8-4.8); LYMPHOCYTES % (AUTO) 6.1 % (20.0-44.0); MEAN CORPUSCULAR HEMOGLOBIN 30 PG (26.0-33.0); MEAN CORPUSCULAR HGB CONC 33 g/dl (31.0-36.0); MEAN CORPUSCULAR VOLUME 91 fL (82-100); MONOCYTES # (AUTO) 0.4 /CMM (0.1-1.30); MONOCYTES % (AUTO) 4.8 % (2.0-12.0); NEUTROPHILS % (AUTO) 89.1 % (43.0-81.0); PLATELET COUNT (AUTO) 263 /CMM (150-450); RDW COEFFICIENT OF VARIATION 15.9 (11.5-15.0); RED BLOOD CELL COUNT(AUTO) 4.26 MIL/uL (4.0-5.2); WHITE BLOOD COUNT (AUTO) 7.8 K/uL (4.3-11.0)
[2016-10-17 06:58] LABS: ALANINE AMINOTRANSFERASE 152 U/L (12-78); ALBUMIN 2.6 g/dL (3.4-5.0); ALKALINE PHOSPHATASE 63 U/L (46-116); ASPARTATE AMINOTRANSFERASE 180 U/L (15-37); BILIRUBIN,DIRECT 0.2 mg/dL (0.0-0.2); BILIRUBIN,TOTAL 0.5 mg/dL (0.2-1.0); CALCIUM, SERUM 9.1 mg/dL (8.5-10.1); CHLORIDE 103 mmol/L (98-107); CREATININE 0.8 mg/dL (0.6-1.3); GLUCOSE 167 mg/dL (74-106); MAGNESIUM 1.7 mg/dL (1.8-2.4); SODIUM SERUM 144 mmol/L (136-145); TOTAL PROTEIN, SERUM 6.2 g/dL (6.4-8.2); UREA NITROGEN, BLOOD 21 mg/dL (7-18)
--- NOTE | 2016-10-17 06:59 | NUR ---
RN CLOSING NOTES SLEEPING, NO DISTRESS NOTED, NO PHYSICAL MANIFESTATION OF PAIN OR DISCOMFORT. VITAL SIGNS WNL. WILL ENDORSE TO AM SHIFT FOR CONTINUITY OF CARE
[2016-10-17 07:13] LABS: CHOLESTEROL 165 mg/dL (<200); HDL CHOLESTEROL 52 mg/dL (40-60); LDL 99 mg/dL (0-99); TRIGLYCERIDES 65 mg/dL (30-150)
[2016-10-17 07:14] LABS: THYROID STIMULATING HORMONE 0.475 uIU/mL (0.358-3.74)
[2016-10-17 07:39] LABS: CARBON DIOXIDE 40 mmol/L (21-32)
--- NOTE | 2016-10-17 07:43 | NUR ---
pt received on bipap and placed on nasal cannula @ 4 lpm o2 flow. spo2 98%, hr 76 - 81 bpm breath sounds course rhonchi bilateral, pt able to cough. bipap on std by @ bedside. Addendum: 10/17/16 at 0746 by FROILAN DONALD RT Amended: Links added.
[2016-10-17] MEDS: POTASSIUM CL. PREMIX PERIPHER. 50 ML IV SCH ×6 (07:49→16:13)
[2016-10-17 08:00] VITALS: BP 153/90
[2016-10-17] MEDS: FUROSEMIDE 40 MG TABLET PO SCH (08:08)
[2016-10-17] MEDS ORDERED: methylPREDNISolone SOD SUCC 125 MG/2ML VIAL IV SCH (09:00)
[2016-10-17] MEDS: MULTIVIT, IRON, MIN NO. 8, FA 1 TAB PO SCH (09:00)
[2016-10-17] MEDS: PANTOPRAZOLE 40 MG TABLET.DR PO SCH ×2 (09:00→16:27)
[2016-10-17] MEDS: ZINC SULFATE 220 MG CAPSULE PO SCH (09:00)
[2016-10-17] MEDS ORDERED: Medication Not On Formulary EA (Cranberry Extract (Cranberry Concentrate) 1,680 MG) PO SCH (09:00)
[2016-10-17] MEDS: SUCRALFATE 1 G TABLET PO SCH ×3 (09:00→16:27)
[2016-10-17] MEDS: ASCORBIC ACID 500 MG TABLET PO SCH (09:00)
[2016-10-17 09:30] LABS: ABG BASE EXCESS 11.4 mmol/L; ABG OXYGEN SATURATION 96.5 % (92.0-98.5); ABG PCO2 56.4 mmHg (35.0-45.0); ABG PH 7.442 (7.350-7.450); ABG PO2 87.8 mmHg (75.0-100.0); AaDO2 110.7 mmHg; COHb 0.5 % (0.5-1.5); MetHb 0.3 % (0.0-1.5); O2Hb 95.7 % (94.0-97.0); SITE, ABG Right Radial; VENT MODE, BG NASAL CANNULA
--- NOTE | 2016-10-17 09:49 | NUR ---
PT IS AWAKE, DECREASED O2 FLOW FROM 4 LPM TO 2 LPM PER MD ORDER. Addendum: 10/17/16 at 0950 by FROILAN DONALD RT Amended: Links added.
[2016-10-17] MEDS: ENOXAPARIN SODIUM 30 MG/0.3 ML DISP.SYRIN SQ SCH (09:53)
[2016-10-17] MEDS: ASPIRIN 81 MG TAB.CHEW PO SCH (11:00)
--- NOTE | 2016-10-17 11:29 | NUR ---
WOUND CARE CONSULT PATIENT SEEN AND SKIN ASSESSED. PATIENT PRESENTS WITH POA SACRAL STAGE 2 AND EXCORIATION ON THE LATERAL RIGHT BREAST. FOR SACRUM, RECOMMEND CLEANSE WITH NS, PAT DRY, APPLY A SMALL AMOUNT OF HYDROGEL AND COVER WITH MEPILEX DAILY AND PRN SOILING; ALSO FREQUENT TURNING. FOR LATERAL BREAST EXCORIATION, APPLY ZGUARD DAILY. PATIENT IS ON A ISOFLEX LOW AIR LOSS MATTRESS. ASKED RN TO PLACE A CARE PLAN. ALL ORDERS PLACED. WILL CONTINUE TO FOLLOW PATIENT NEEDED. Addendum: 10/17/16 at 1132 by ERNESTO SAUL RN Amended: Links added.
[2016-10-17] MEDS: HYDROGEL DRESSING 90 GM TUBE TP SCH (11:49)
[2016-10-17 12:00] VITALS: BP_SYST 156; BP_SYST 162; BP_DIAS 74; BP_DIAS 76
[2016-10-17] MEDS: Magnesium 1GM/D5W 100ML PREMIX 100 ML IV SCH ×2 (12:03→13:56)
[2016-10-17] MEDS: DIGOXIN 0.125 MG TABLET PO SCH (12:45)
--- NOTE | 2016-10-17 13:28 | NUR ---
DEON RN NOTE 0720: Received patient awake, A/Ox2-3. Placed by RT on 4LPM of O2 via NC from Bipap. Tolerated at this time. No c/o discomfort at this time. Noted with Right wrist PIV infiltrated, will reinsert a new one. Called pharmacy to dose KCL for K level 3.0, awaiting for order. 0820: S/E by Dr. Coley, all questions were answered. 0920: RT informed Dr. Coley re: the ABG, with order to keep off Bipap and do nocturnal Bipap. Placed on 4LPM of O2 via NC. Inserted new PIV on RH by CN due to unsuccessful with me x2 attempts. 1030: Still noted with c/o pain on RH PIV, able to place new PIV on LFA g22 by patient still with c/o pain even lowering the dose rate. 1220: Made MD aware for need of midline, obtained order for midline insertion. Able to tolerate diet. 1320: Midline nurse at bedside for midline insertion, able to place RICKEY midline.
[2016-10-17] MEDS ORDERED: METOPROLOL TARTRATE INJ 5 MG/5 ML AMPUL IVP PRN (14:30)
[2016-10-17] MEDS ORDERED: FUROSEMIDE 20 MG/2 ML VIAL IV ONE (15:00)
[2016-10-17 16:00] VITALS: BP 158/60
--- NOTE | 2016-10-17 19:20 | NUR ---
RN OPENING NOTES: RECEIVED PATIENT ON BED ASLEEP BUT AROUSABLE WITH DAUGHTER TRISTIN AT BEDSIDE. PATIENT NOTED TO BE ALERT AND ORIENTED WHEN AWAKE X2 WITH REPORTED PERIODS OF CONFUSION. ON O2 VIA NC AT 2LPM, TOLERATED WELL, NOT IN APPARENT DISTRESS. AFIB ON MONITOR WITH NOTED ERRATIC HEART RATE RANGING FROM CONTROLLED AT 90'S TO UNCONTROLLED AT 120'S NON SUSTAINING. IV ACCESS ON RICKEY MIDLINE PATENT AND INTACT, KEPT SL AT THIS TIME. R HAND G22 AND LFA G22 PATENT AND INTACT, KEPT SL WELL. SAFETY MEASURES ENSURED. CALL LIGHT WITHIN REACH WITH INSTRUCTIONS FOR USE. BED ALARM ON. ASPIRATION PRECAUTIONS OBSERVED. SAFETY MEASURES ENSURED. FOR BIPAP AT HS. CONTINUOUSLY MONITORED CLOSELY.
[2016-10-17 20:00] VITALS: BP 152/72
[2016-10-17] MEDS: DONEPEZIL 5 MG TABLET PO SCH (21:14)
[2016-10-17] MEDS: ATORVASTATIN 10 MG TABLET PO SCH (21:14)
[2016-10-18] VITALS (7 sets, daily range): BP systolic 99–158; BP diastolic 59–147
[2016-10-18] MEDS: IPRATROPIUM NEB FS 0.5 MG/2.5 ML AMPUL.NEB NEB SCH ×4 (01:08→19:14)
[2016-10-18] MEDS: ALBUTEROL FS 2.5 MG/0.5 ML VIAL.NEB NEB SCH ×4 (01:08→19:14)
--- NOTE | 2016-10-18 02:00 | NUR ---
RN NOTES: PATIENT AWAKE, REMOVED BIPAP, REFUSING BIPAP AT THIS TIME DESPITE EXPLAINING RISKS AND BENEFITS. RT AWARE, PLACED PATIENT NOW IN O2 AT 2LPM.
--- NOTE | 2016-10-18 06:00 | NUR ---
RN CLOSING NOTES; PATIENT REMAINED IN BED NO DECLINE IN MENTAL STATUS NOTED. REMAINED CONTROLLED AFIB ON MONITOR HR AT 90'S TO LOW 100'S. KEPT ON O2 THERAPY. RICKEY MIDLINE PATENT AND INTACT; SKIN CARE RENDERED. WHEN PATIENT WAS INFORMED ABOUT DOING A STRAIGHT CATH FOR NEEDED URINE SPECIMEN, PATIENT STARTED BECOMING VERBALLY AGGRESSIVE AND WAS SCREAMING. CONCEDED TO PATIENT'S DECISION AT THIS TIME. AM LABS DRAWN. SAFETY MEASURES ENSURED. TO ENDORSE TO AM SHIFT RN.
[2016-10-18 06:44] LABS: BASOPHILS % (AUTO) 0.1 % (0.0-2.0); HEMATOCRIT 36 % (33-45); HEMOGLOBIN 11.9 g/dL (11.5-14.8); LYMPHOCYTES # (AUTO) 0.9 /CMM (0.8-4.8); LYMPHOCYTES % (AUTO) 11.3 % (20.0-44.0); MEAN CORPUSCULAR HEMOGLOBIN 30 PG (26.0-33.0); MEAN CORPUSCULAR HGB CONC 33 g/dl (31.0-36.0); MEAN CORPUSCULAR VOLUME 91 fL (82-100); MONOCYTES # (AUTO) 1.1 /CMM (0.1-1.30); MONOCYTES % (AUTO) 14.1 % (2.0-12.0); NEUTROPHILS % (AUTO) 74.5 % (43.0-81.0); PLATELET COUNT (AUTO) 278 /CMM (150-450); RED BLOOD CELL COUNT(AUTO) 4.01 MIL/uL (4.0-5.2); WHITE BLOOD COUNT (AUTO) 8.1 K/uL (4.3-11.0)
[2016-10-18 07:10] LABS: CALCIUM, SERUM 9.2 mg/dL (8.5-10.1); CHLORIDE 104 mmol/L (98-107); CREATININE 0.8 mg/dL (0.6-1.3); GLUCOSE 90 mg/dL (74-106); MAGNESIUM 2.1 mg/dL (1.8-2.4); PHOSPHORUS 2.9 mg/dL (2.5-4.9); POTASSIUM 3.6 mmol/L (3.5-5.1); SODIUM SERUM 146 mmol/L (136-145); UREA NITROGEN, BLOOD 23 mg/dL (7-18)
[2016-10-18] MEDS: MULTIVIT, IRON, MIN NO. 8, FA 1 TAB PO SCH (08:19)
[2016-10-18] MEDS: ASCORBIC ACID 500 MG TABLET PO SCH (08:19)
[2016-10-18] MEDS: ZINC SULFATE 220 MG CAPSULE PO SCH (08:19)
[2016-10-18] MEDS: FUROSEMIDE 40 MG TABLET PO SCH (08:19)
[2016-10-18] MEDS: PANTOPRAZOLE 40 MG TABLET.DR PO SCH ×2 (08:19→17:17)
[2016-10-18] MEDS: ASPIRIN 81 MG TAB.CHEW PO SCH (08:19)
[2016-10-18] MEDS: POTASSIUM CHLORIDE 10 MEQ TABLET.SA PO SCH (08:19)
[2016-10-18] MEDS: HYDROGEL DRESSING 90 GM TUBE TP SCH (08:19)
[2016-10-18] MEDS: SUCRALFATE 1 G TABLET PO SCH ×3 (08:19→17:17)
[2016-10-18] MEDS: ENOXAPARIN SODIUM 30 MG/0.3 ML DISP.SYRIN SQ SCH (08:20)
[2016-10-18 08:35] LABS: CARBON DIOXIDE 42 mmol/L (21-32)
[2016-10-18] MEDS ORDERED: methylPREDNISolone SOD SUCC 40 MG/ML VIAL IV SCH (09:00)
[2016-10-18] MEDS: DIGOXIN 0.125 MG TABLET PO SCH (13:24)
--- NOTE | 2016-10-18 16:09 | NUR ---
RN DEON PATIENT IS IN BED. RESTING COMFORTABLY. NO ACUTE DISTRESS NOTED. EVEN AND NON LABORED BREATHING PATTERN. TURNED AND REPOSITIONED FOR COMFORT AND WOUND PREVENTION. WILL CONTINUE TO MONITOR AND PROVIDE CARE.
[2016-10-18] MEDS: DONEPEZIL 5 MG TABLET PO SCH (21:20)
[2016-10-18] MEDS: ATORVASTATIN 10 MG TABLET PO SCH (21:20)
[2016-10-18] MEDS: MUPIROCIN OINT 2% 22 GM TUBE SCH (21:22)
--- NOTE | 2016-10-18 21:29 | NUR ---
PT REFUSED BIPAP AT THIS TIME. NO RESPIRATORY DISTRESS NOTED, RN AMY PARRA.
--- NOTE | 2016-10-18 22:00 | NUR ---
BAG PRESS OPERATOR: PT REFUSED BIPAP,EXPLAINED ABOUT BENEFITS OF BIPAP, PT STILL REFUSED. ON NASAL CANNULA 2L SATURATING 94-96%, NO DISTRESS. KEEP MONITORING...
[2016-10-19] VITALS: BP 141/62
[2016-10-19 00:09] VITALS: BP 141/62
[2016-10-19] MEDS: IPRATROPIUM NEB FS 0.5 MG/2.5 ML AMPUL.NEB NEB SCH ×3 (01:46→13:57)
[2016-10-19] MEDS: ALBUTEROL FS 2.5 MG/0.5 ML VIAL.NEB NEB SCH ×3 (01:47→13:57)
[2016-10-19] MEDS ORDERED: LEVOFLOXACIN 750 MG /D5W 150ML 750 MG in PREMIX 1 EA IV SCH (03:00)
[2016-10-19 04:00] VITALS: BP 120/51
--- NOTE | 2016-10-19 04:35 | NUR ---
HOT TAMALE WORKER: COMPLETE BED BATH GIVEN TO PT. WOUND CARE RENDERED.
[2016-10-19 04:38] VITALS: BP 141/62
[2016-10-19 07:26] LABS: BASOPHILS % (AUTO) 0.2 % (0.0-2.0); EOSINOPHILS % (AUTO) 0.2 % (0.0-6.0); HEMATOCRIT 34 % (33-45); HEMOGLOBIN 11.1 g/dL (11.5-14.8); LYMPHOCYTES # (AUTO) 1.2 /CMM (0.8-4.8); LYMPHOCYTES % (AUTO) 12.7 % (20.0-44.0); MEAN CORPUSCULAR HEMOGLOBIN 30 PG (26.0-33.0); MEAN CORPUSCULAR HGB CONC 33 g/dl (31.0-36.0); MEAN CORPUSCULAR VOLUME 90 fL (82-100); MONOCYTES # (AUTO) 0.8 /CMM (0.1-1.30); MONOCYTES % (AUTO) 8.8 % (2.0-12.0); NEUTROPHILS # (AUTO) 7.4 /CMM (1.8-8.9); NEUTROPHILS % (AUTO) 78.1 % (43.0-81.0); PLATELET COUNT (AUTO) 216 /CMM (150-450); RDW COEFFICIENT OF VARIATION 15.3 (11.5-15.0); RED BLOOD CELL COUNT(AUTO) 3.75 MIL/uL (4.0-5.2); WHITE BLOOD COUNT (AUTO) 9.5 K/uL (4.3-11.0)
[2016-10-19 08:00] VITALS: BP_SYST 117; BP_SYST 137; BP_DIAS 51; BP_DIAS 68
[2016-10-19] MEDS: FUROSEMIDE 40 MG TABLET PO SCH (09:00)
[2016-10-19] MEDS: PANTOPRAZOLE 40 MG TABLET.DR PO SCH (09:00)
[2016-10-19] MEDS: MUPIROCIN OINT 2% 22 GM TUBE SCH (09:00)
[2016-10-19] MEDS: POTASSIUM CHLORIDE 10 MEQ TABLET.SA PO SCH (09:00)
[2016-10-19] MEDS: MULTIVIT, IRON, MIN NO. 8, FA 1 TAB PO SCH (09:00)
[2016-10-19] MEDS: SUCRALFATE 1 G TABLET PO SCH ×2 (09:00→13:00)
[2016-10-19] MEDS: ZINC SULFATE 220 MG CAPSULE PO SCH (09:00)
[2016-10-19] MEDS: ASCORBIC ACID 500 MG TABLET PO SCH (09:00)
[2016-10-19] MEDS: ENOXAPARIN SODIUM 30 MG/0.3 ML DISP.SYRIN SQ SCH (09:00)
[2016-10-19] MEDS: HYDROGEL DRESSING 90 GM TUBE TP SCH (09:00)
[2016-10-19] MEDS: ASPIRIN 81 MG TAB.CHEW PO SCH (09:00)
[2016-10-19 12:00] VITALS: BP 133/75
[2016-10-19] MEDS: DIGOXIN 0.125 MG TABLET PO SCH (13:00)
--- NOTE | 2016-10-19 14:19 | NUR ---
RN DEON SEEN EARLIER BY DR. OROZCO WITH NEW ORDERS MADE AND CARRIED OUT MIDLINE WAS [id number] BY THE PATIENT PLACED HER ON 3 LITERS NASAL CANNULA SATURATING WELL ALREADY GAVE REPORT TO KAYA RN FOR TRANSFER OF PATIENT ANYTIME SOON LAST DUE MEDICATIONS GIVEN AWAITING AMBULANCE TO DESIGNER WRITER PATIENT
--- NOTE | 2016-10-19 14:50 | NUR ---
RN DEON REPORT GIVEN TO RN/EMT NO OTHER UNTOWRDS SYMPTOMS SEEN DISCHARGED
== END 2016-10-19 15:10 | DRG 871 ==
LOC: ER 23:01 → TELE-TD 10-17 00:48
PROVIDERS: ADMIT Nurse Practitioner Acute Care; ATTEND Nurse Practitioner Acute Care
PROC: 05H533Z Insertion of Infusion Device into Right Subclavian Vein, Percutaneous Approach (ICD-10-PCS; principal; 2016-10-17)
PROC: 5A09357 Assistance with Respiratory Ventilation, Less than 24 Consecutive Hours, Continuous Positive Airway Pressure (ICD-10-PCS; principal; 2016-10-17)
DX: A41.9 Sepsis, unspecified organism (principal); J96.22 Acute and chronic respiratory failure with hypercapnia; I21.4 Non-ST elevation (NSTEMI) myocardial infarction; I50.33 Acute on chronic diastolic (congestive) heart failure; G92 Toxic encephalopathy; J18.9 Pneumonia, unspecified organism; N17.9 Acute kidney failure, unspecified; I11.0 Hypertensive heart disease with heart failure; J44.0 Chronic obstructive pulmonary disease with (acute) lower respiratory infection; E44.0 Moderate protein-calorie malnutrition; E66.2 Morbid (severe) obesity with alveolar hypoventilation; J44.1 Chronic obstructive pulmonary disease with (acute) exacerbation; E87.2 Acidosis; N39.0 Urinary tract infection, site not specified; I48.91 Unspecified atrial fibrillation; D64.9 Anemia, unspecified; K21.9 Gastro-esophageal reflux disease without esophagitis; Z66 Do not resuscitate; Z79.899 Other long term (current) drug therapy; Z85.42 Personal history of malignant neoplasm of other parts of uterus; E87.6 Hypokalemia; E78.5 Hyperlipidemia, unspecified; R74.0 Nonspecific elevation of levels of transaminase and lactic acid dehydrogenase [LDH]; F03.90 Unspecified dementia, unspecified severity, without behavioral disturbance, psychotic disturbance, mood disturbance, and anxiety; Z68.21 Body mass index [BMI] 21.0-21.9, adult; L98.8 Other specified disorders of the skin and subcutaneous tissue; R65.20 Severe sepsis without septic shock
CPT/HCPCS: 36415; 36569; 36600; 71010-TC; 80048-TC; 80061-TC; 80076-TC; 80162-TC; 82803-TC; 83605-TC; 83735-TC; 83880; 84100-TC; 84443-TC; 84484-TC; 85025-TC; 85730-TC; 87040-TC; 87081-TC; 87400; 94760-TC; 94761-TC; 94762-TC; 94799-TC; 99082-TC; A4216; A4606; A6248; A6402; J1100; J1650; J1940; J1956; J2920; J2930; J3475; J3480; J3490; J7050; J7060; Z7610

== ENCOUNTER 2016-12-08 19:40 | Inpatient (IN) | payer MEDICAID, MEDICARE ==
[~2016-12-08] VITALS: Ht 172.7 cm; Wt 72.6 kg
[2016-12-08 20:33] LABS: BASOPHILS # (AUTO) 0.2 /CMM (0.0-0.2); BASOPHILS % (AUTO) 2.6 % (0.0-2.0); EOSINOPHILS % (AUTO) 0.3 % (0.0-6.0); HEMATOCRIT 41 % (33-45); HEMOGLOBIN 12.8 g/dL (11.5-14.8); LYMPHOCYTES # (AUTO) 1.5 /CMM (0.8-4.8); LYMPHOCYTES % (AUTO) 20.8 % (20.0-44.0); MEAN CORPUSCULAR HEMOGLOBIN 29 PG (26.0-33.0); MEAN CORPUSCULAR HGB CONC 31 g/dl (31.0-36.0); MEAN CORPUSCULAR VOLUME 93 fL (82-100); MONOCYTES # (AUTO) 0.5 /CMM (0.1-1.30); MONOCYTES % (AUTO) 7.7 % (2.0-12.0); NEUTROPHILS # (AUTO) 4.8 /CMM (1.8-8.9); NEUTROPHILS % (AUTO) 68.6 % (43.0-81.0); PLATELET COUNT (AUTO) 231 /CMM (150-450); RDW COEFFICIENT OF VARIATION 15.3 (11.5-15.0); RED BLOOD CELL COUNT(AUTO) 4.42 MIL/uL (4.0-5.2)
[2016-12-08 20:43] LABS: APPEARANCE,URINE Clear (CLEAR); BILIRUBIN,URINE Negative (NEGATIVE); BLOOD, URINE Trace-intact Ery/uL (NEGATIVE); COLOR,URINE Yellow (YELLOW); KETONES,URINE Negative (NEGATIVE); LEUKOCYTE ESTERASE ,URINE Negative (NEGATIVE); NITRITE, URINE Negative (NEGATIVE); PH,URINE 5.5 (5.0-8.0); PROTEIN,URINE 100 mg/dl (NEGATIVE); UGLUCOSE Negative (NEGATIVE); UROBILINOGEN,URINE 0.2 EU/dL (0.2)
[2016-12-08 20:52] LABS: INR 1.1 (0.87-1.13); PROTHROMBIN TIME 11.5 SECS (9.5-12.7)
[2016-12-08 20:56] LABS: TROPONIN I 0.091 ng/mL (0.00-0.056)
[2016-12-08 20:57] LABS: ALANINE AMINOTRANSFERASE 18 U/L (12-78); ALBUMIN 3.1 g/dL (3.4-5.0); ALKALINE PHOSPHATASE 69 U/L (46-116); ASPARTATE AMINOTRANSFERASE 29 U/L (15-37); BILIRUBIN,DIRECT 0.2 mg/dL (0.0-0.2); BILIRUBIN,TOTAL 0.5 mg/dL (0.2-1.0); CALCIUM, SERUM 10.1 mg/dL (8.5-10.1); CARBON DIOXIDE 35 mmol/L (21-32); CHLORIDE 108 mmol/L (98-107); CREATININE 0.9 mg/dL (0.6-1.3); GLUCOSE 109 mg/dL (74-106); POTASSIUM 5.1 mmol/L (3.5-5.1); SODIUM SERUM 141 mmol/L (136-145); TOTAL PROTEIN, SERUM 7.1 g/dL (6.4-8.2); UREA NITROGEN, BLOOD 38 mg/dL (7-18)
[2016-12-08 21:09] LABS: BACTERIA,URINE Rare /HPF (None Seen); SQUAMOUS EPITHELIAL CELL,UR Few /HPF (None Seen); WBC,URINE NONE SEEN /HPF (0-3)
[2016-12-08 22:58] LABS: ABG BASE EXCESS 4.8 mmol/L; ABG OXYGEN SATURATION 93.7 % (92.0-98.5); ABG PCO2 77.1 mmHg (35.0-45.0); ABG PH 7.267 (7.350-7.450); AaDO2 95.2 mmHg; MetHb 0.5 % (0.0-1.5); O2Hb 92.3 % (94.0-97.0); SITE, ABG Right Radial; VENT MODE, BG Nasal Cannula
[2016-12-09] VITALS (53 sets, daily range): BP systolic 126–200; BP diastolic 27–140
[2016-12-09 04:52] LABS: BASOPHILS % (AUTO) 0.4 % (0.0-2.0); EOSINOPHILS % (AUTO) 0.2 % (0.0-6.0); HEMATOCRIT 39 % (33-45); LYMPHOCYTES # (AUTO) 0.9 /CMM (0.8-4.8); LYMPHOCYTES % (AUTO) 10.7 % (20.0-44.0); MEAN CORPUSCULAR HEMOGLOBIN 29 PG (26.0-33.0); MEAN CORPUSCULAR HGB CONC 31 g/dl (31.0-36.0); MEAN CORPUSCULAR VOLUME 93 fL (82-100); MONOCYTES # (AUTO) 0.8 /CMM (0.1-1.30); MONOCYTES % (AUTO) 9.3 % (2.0-12.0); NEUTROPHILS # (AUTO) 6.4 /CMM (1.8-8.9); NEUTROPHILS % (AUTO) 79.4 % (43.0-81.0); PLATELET COUNT (AUTO) 203 /CMM (150-450); RDW COEFFICIENT OF VARIATION 15.9 (11.5-15.0); RED BLOOD CELL COUNT(AUTO) 4.17 MIL/uL (4.0-5.2)
[2016-12-09 05:21] LABS: CHOLESTEROL 154 mg/dL (<200); HDL CHOLESTEROL 48 mg/dL (40-60); LDL 98 mg/dL (0-99); TRIGLYCERIDES 70 mg/dL (30-150)
[2016-12-09 05:22] LABS: ALANINE AMINOTRANSFERASE 17 U/L (12-78); ALBUMIN 2.7 g/dL (3.4-5.0); ALKALINE PHOSPHATASE 63 U/L (46-116); ASPARTATE AMINOTRANSFERASE 15 U/L (15-37); BILIRUBIN,TOTAL 0.5 mg/dL (0.2-1.0); CALCIUM, SERUM 9.4 mg/dL (8.5-10.1); CARBON DIOXIDE 36 mmol/L (21-32); CHLORIDE 108 mmol/L (98-107); CREATININE 0.8 mg/dL (0.6-1.3); GLUCOSE 120 mg/dL (74-106); PHOSPHORUS 2.6 mg/dL (2.5-4.9); POTASSIUM 3.8 mmol/L (3.5-5.1); SODIUM SERUM 146 mmol/L (136-145); TOTAL PROTEIN, SERUM 6.1 g/dL (6.4-8.2); UREA NITROGEN, BLOOD 35 mg/dL (7-18)
[2016-12-09 05:52] LABS: B-TYPE NATRIURETIC PEPTIDE 34976 PG/ML (0-125)
[2016-12-09 10:33] LABS: ABG BASE EXCESS 13.7 mmol/L; ABG OXYGEN SATURATION 96.8 % (92.0-98.5); ABG PCO2 68.6 mmHg (35.0-45.0); ABG PH 7.399 (7.350-7.450); ABG PO2 87.2 mmHg (75.0-100.0); AaDO2 2.3 mmHg; COHb 0.9 % (0.5-1.5); MetHb 0.5 % (0.0-1.5); O2Hb 95.4 % (94.0-97.0); SITE, ABG Right Radial; VENT MODE, BG NASAL CANNULA
[2016-12-10] VITALS (18 sets, daily range): BP systolic 108–179; BP diastolic 50–103
[2016-12-10 04:47] LABS: BASOPHILS # (AUTO) 0.1 /CMM (0.0-0.2); BASOPHILS % (AUTO) 0.5 % (0.0-2.0); EOSINOPHILS # (AUTO) 0.1 /CMM (0.0-0.7); EOSINOPHILS % (AUTO) 0.9 % (0.0-6.0); HEMATOCRIT 40 % (33-45); HEMOGLOBIN 12.8 g/dL (11.5-14.8); LYMPHOCYTES # (AUTO) 1.7 /CMM (0.8-4.8); LYMPHOCYTES % (AUTO) 15.6 % (20.0-44.0); MEAN CORPUSCULAR HEMOGLOBIN 29 PG (26.0-33.0); MEAN CORPUSCULAR HGB CONC 32 g/dl (31.0-36.0); MEAN CORPUSCULAR VOLUME 91 fL (82-100); MONOCYTES # (AUTO) 0.7 /CMM (0.1-1.30); MONOCYTES % (AUTO) 6.9 % (2.0-12.0); NEUTROPHILS # (AUTO) 8.2 /CMM (1.8-8.9); NEUTROPHILS % (AUTO) 76.1 % (43.0-81.0); PLATELET COUNT (AUTO) 224 /CMM (150-450); RDW COEFFICIENT OF VARIATION 15.3 (11.5-15.0); RED BLOOD CELL COUNT(AUTO) 4.41 MIL/uL (4.0-5.2); WHITE BLOOD COUNT (AUTO) 10.8 K/uL (4.3-11.0)
[2016-12-10 05:00] LABS: CALCIUM, SERUM 8.9 mg/dL (8.5-10.1); CARBON DIOXIDE 36 mmol/L (21-32); CHLORIDE 104 mmol/L (98-107); CREATININE 0.8 mg/dL (0.6-1.3); GLUCOSE 89 mg/dL (74-106); MAGNESIUM 1.5 mg/dL (1.8-2.4); POTASSIUM 3.1 mmol/L (3.5-5.1); SODIUM SERUM 143 mmol/L (136-145); UREA NITROGEN, BLOOD 30 mg/dL (7-18)
[2016-12-10 05:22] LABS: LYMPHOCYTES % (MANUAL) 16 % (16-48); MONOCYTES % (MANUAL) 4 % (0-11.0); NEUTROPHILS % (MANUAL) 80 (42-76)
[2016-12-11] VITALS (7 sets, daily range): BP systolic 109–155; BP diastolic 51–77
[2016-12-11 07:58] LABS: BASOPHILS % (AUTO) 0.5 % (0.0-2.0); EOSINOPHILS # (AUTO) 0.1 /CMM (0.0-0.7); EOSINOPHILS % (AUTO) 1.3 % (0.0-6.0); HEMATOCRIT 40 % (33-45); HEMOGLOBIN 12.6 g/dL (11.5-14.8); LYMPHOCYTES # (AUTO) 1.7 /CMM (0.8-4.8); LYMPHOCYTES % (AUTO) 21.8 % (20.0-44.0); MEAN CORPUSCULAR HEMOGLOBIN 29 PG (26.0-33.0); MEAN CORPUSCULAR HGB CONC 32 g/dl (31.0-36.0); MEAN CORPUSCULAR VOLUME 91 fL (82-100); MONOCYTES # (AUTO) 0.6 /CMM (0.1-1.30); MONOCYTES % (AUTO) 7.6 % (2.0-12.0); NEUTROPHILS # (AUTO) 5.3 /CMM (1.8-8.9); NEUTROPHILS % (AUTO) 68.8 % (43.0-81.0); PLATELET COUNT (AUTO) 126 /CMM (150-450); RDW COEFFICIENT OF VARIATION 15.9 (11.5-15.0); RED BLOOD CELL COUNT(AUTO) 4.38 MIL/uL (4.0-5.2); WHITE BLOOD COUNT (AUTO) 7.7 K/uL (4.3-11.0)
[2016-12-11 08:36] LABS: ALANINE AMINOTRANSFERASE 15 U/L (12-78); ALBUMIN 2.4 g/dL (3.4-5.0); ALKALINE PHOSPHATASE 64 U/L (46-116); ASPARTATE AMINOTRANSFERASE 23 U/L (15-37); BILIRUBIN,TOTAL 0.8 mg/dL (0.2-1.0); CARBON DIOXIDE 37 mmol/L (21-32); CHLORIDE 102 mmol/L (98-107); CREATININE 0.7 mg/dL (0.6-1.3); GLUCOSE 82 mg/dL (74-106); MAGNESIUM 2.1 mg/dL (1.8-2.4); PHOSPHORUS 2.2 mg/dL (2.5-4.9); POTASSIUM 3.8 mmol/L (3.5-5.1); SODIUM SERUM 143 mmol/L (136-145); TOTAL PROTEIN, SERUM 5.8 g/dL (6.4-8.2); UREA NITROGEN, BLOOD 25 mg/dL (7-18)
[2016-12-12] VITALS: BP 141/67
[2016-12-12 04:00] VITALS: BP 136/58
[2016-12-12 08:00] VITALS: BP 140/99
[2016-12-12 10:18] VITALS: BP 149/99
== END 2016-12-12 18:25 | DRG 194 ==
LOC: ER 19:41 → TELE 23:08 → ICU 23:40 → TELE-TD 12-10 06:43 → TELE1 12-10 11:49 → TELE 12-11 23:18 → MED 12-12 09:50
PROVIDERS: ADMIT Internal Medicine; ATTEND Internal Medicine
PROC: 5A09457 Assistance with Respiratory Ventilation, 24-96 Consecutive Hours, Continuous Positive Airway Pressure (ICD-10-PCS; principal; 2016-12-08)
PROC: 05H533Z Insertion of Infusion Device into Right Subclavian Vein, Percutaneous Approach (ICD-10-PCS; 2016-12-10)
PROC: B546ZZA Ultrasonography of Right Subclavian Vein, Guidance (ICD-10-PCS; 2016-12-10)
DX: I11.0 Hypertensive heart disease with heart failure (principal); I21.4 Non-ST elevation (NSTEMI) myocardial infarction; N17.0 Acute kidney failure with tubular necrosis; J96.21 Acute and chronic respiratory failure with hypoxia; J90 Pleural effusion, not elsewhere classified; L89.153 Pressure ulcer of sacral region, stage 3; D68.59 Other primary thrombophilia; E87.2 Acidosis; E44.0 Moderate protein-calorie malnutrition; I50.33 Acute on chronic diastolic (congestive) heart failure; R53.2 Functional quadriplegia; I48.91 Unspecified atrial fibrillation; E78.5 Hyperlipidemia, unspecified; Z95.1 Presence of aortocoronary bypass graft; Z86.73 Personal history of transient ischemic attack (TIA), and cerebral infarction without residual deficits; Z85.42 Personal history of malignant neoplasm of other parts of uterus; Z74.01 Bed confinement status; Z66 Do not resuscitate; K21.9 Gastro-esophageal reflux disease without esophagitis; Z79.82 Long term (current) use of aspirin; Z79.899 Other long term (current) drug therapy; J96.22 Acute and chronic respiratory failure with hypercapnia; I25.10 Atherosclerotic heart disease of native coronary artery without angina pectoris; F01.50 Vascular dementia, unspecified severity, without behavioral disturbance, psychotic disturbance, mood disturbance, and anxiety; I25.2 Old myocardial infarction; I70.0 Atherosclerosis of aorta; J44.9 Chronic obstructive pulmonary disease, unspecified; J98.11 Atelectasis; E66.2 Morbid (severe) obesity with alveolar hypoventilation; Z68.24 Body mass index [BMI] 24.0-24.9, adult; J40 Bronchitis, not specified as acute or chronic
CPT/HCPCS: 36415; 36600; 70450-TC; 71010-TC; 80048-TC; 80053-TC; 80061-TC; 80076-TC; 80162-TC; 80202-TC; 81000-TC; 82803-TC; 83605-TC; 83735-TC; 83880; 84100-TC; 84484-TC; 85025-TC; 85730-TC; 87040-TC; 87081-TC; 87086-TC; 92526; 92611-TC; A4216; A4606; A6248; A6402; J0360; J1160; J1650; J1940; J1956; J2405; J2543; J3370; J3475; J3490; J7030; J7050; J7060; Z7610

== ENCOUNTER 2016-12-21 12:43 | Inpatient (IN) | payer MEDICAID, MEDICARE ==
[~2016-12-21] VITALS: Ht 162.6 cm; Wt 63.5 kg
[2016-12-21] VITALS (21 sets, daily range): BP systolic 105–163; BP diastolic 43–101
[~2016-12-21 12:43] MED LIST changes: -LEVO750T21 PO
--- NOTE | 2016-12-21 12:50 | NUR ---
JOSE RA FROM [facility] FOR SOB. PATIENT LETHARGIC, ON NON REBREATHER WITH BREATHING TREATMENT. PATIENT NOT ALERT, TACHYCARDIC, BLOOD PRESSURE WNL. SAFETY AND COMFORT MEASURES IN PLACE. AWAITING MD ORDERS.
--- NOTE | 2016-12-21 13:25 | NUR ---
PATIENT MEDICATED WITH IV CARDIZEM, VITALS STABLE POST INJECTION. WILL CONTINUE TO MONITOR.
[2016-12-21 13:37] LABS: HEMATOCRIT 42 % (33-45); HEMOGLOBIN 12.8 g/dL (11.5-14.8); LYMPHOCYTES # (AUTO) 0.2 /CMM (0.8-4.8); LYMPHOCYTES % (AUTO) 1.6 % (20.0-44.0); MEAN CORPUSCULAR HEMOGLOBIN 29 PG (26.0-33.0); MEAN CORPUSCULAR HGB CONC 31 g/dl (31.0-36.0); MEAN CORPUSCULAR VOLUME 94 fL (82-100); MONOCYTES # (AUTO) 0.3 /CMM (0.1-1.30); MONOCYTES % (AUTO) 1.8 % (2.0-12.0); NEUTROPHILS % (AUTO) 96.6 % (43.0-81.0); PLATELET COUNT (AUTO) 308 /CMM (150-450); RED BLOOD CELL COUNT(AUTO) 4.42 MIL/uL (4.0-5.2); WHITE BLOOD COUNT (AUTO) 15.5 K/uL (4.3-11.0)
[2016-12-21 13:55] LABS: INR 0.99 (0.87-1.13); PROTHROMBIN TIME 10.3 SECS (9.5-12.7)
--- NOTE | 2016-12-21 14:01 | NUR ---
PANEL ON-CALL PAGED
[2016-12-21 14:02] LABS: ALANINE AMINOTRANSFERASE 40 U/L (12-78); ALKALINE PHOSPHATASE 97 U/L (46-116); ASPARTATE AMINOTRANSFERASE 45 U/L (15-37); BILIRUBIN,DIRECT 0.2 mg/dL (0.0-0.2); BILIRUBIN,TOTAL 0.5 mg/dL (0.2-1.0); CALCIUM, SERUM 10.1 mg/dL (8.5-10.1); CHLORIDE 104 mmol/L (98-107); CREATININE 1.1 mg/dL (0.6-1.3); GLUCOSE 129 mg/dL (74-106); POTASSIUM 3.7 mmol/L (3.5-5.1); SODIUM SERUM 147 mmol/L (136-145); TOTAL PROTEIN, SERUM 7.5 g/dL (6.4-8.2); UREA NITROGEN, BLOOD 36 mg/dL (7-18)
[2016-12-21 14:09] LABS: CARBON DIOXIDE 41 mmol/L (21-32)
--- NOTE | 2016-12-21 14:33 | NUR ---
PER DR. MARSHALL, GIVE ASPIRIN 300MG RECTALLY D/T PATIENT UNABLE TO TAKE ORAL TAB.
[2016-12-21 14:54] LABS: ABG BASE EXCESS 8.2 mmol/L; ABG OXYGEN SATURATION 96.4 % (92.0-98.5); ABG PCO2 98.5 mmHg (35.0-45.0); ABG PH 7.219 (7.350-7.450); ABG PO2 94.7 mmHg (75.0-100.0); AaDO2 519.8 mmHg; COHb 0.6 % (0.5-1.5); MetHb 0.5 % (0.0-1.5); O2Hb 95.3 % (94.0-97.0); SITE, ABG Left Radial
--- NOTE | 2016-12-21 15:00 | NUR ---
PATIENT ON BIPAP, SETTING CHANGED TO 18/5, RATE 16. WILL CONTINUE TO MONITOR.
--- NOTE | 2016-12-21 15:11 | NUR ---
REPORT GIVEN TO RNSCOTTIE FOR ADMISSION.
--- NOTE | 2016-12-21 15:41 | NUR ---
PATIENT TRANSPORTED TO [facility] VIA ACLS PROTOCOL WITH EMT, RN, RT.
--- NOTE | 2016-12-21 16:00 | NUR ---
Admitted 81 year old female to ICU OV 105 for Dx of NSTEMI. Obtunded, nonresponsive- opens eyes to pain. On bipap for respiratory acidosis, PH 7.2 with PCo2 of 93. DNR/DNI status, POLST in chart. Vitals stable, afebrile. Sacral full thickness loss, covered with mepilex. martini inserted in ER, good UO.
[2016-12-21 17:51] LABS: ABG BASE EXCESS 9.4 mmol/L; ABG OXYGEN SATURATION 98.9 % (92.0-98.5); ABG PCO2 78.8 mmHg (35.0-45.0); ABG PH 7.308 (7.350-7.450); ABG PO2 174.6 mmHg (75.0-100.0); AaDO2 459.6 mmHg; COHb 0.4 % (0.5-1.5); MetHb 0.5 % (0.0-1.5); SITE, ABG Left Radial
--- NOTE | 2016-12-21 20:00 | NUR ---
DISMANTLER NOTES RECEIVED PT IN BED, SLEEPY BUT AROUSABLE TO NAME AND TOUCH. TELE READS AFIB IN THE 70s. ON BIPAP AT ORDERED SETTINGS, FAVIOLA WELL. PALUMBO CATH IN PLACE, DRAINING WELL. RAC 20G IV INTACT, SALINE LOCKED. NPO STATUS, HOLD ALL PO MEDS, AWARE. HOB ELEVATED, SIDE RAILS X3, CALL LIGHT WITHIN REACH.
[2016-12-22] VITALS (50 sets, daily range): BP systolic 109–171; BP diastolic 43–115
--- NOTE | 2016-12-22 04:00 | NUR ---
PUMPING STATION SUPERVISOR NOTES PT IS MORE AWAKE AND ALERT. REQUESTED TO TAKE A BREAK FROM BIPAP. PLACED ON NC 6 LPM, FAVIOLA WELL. SPO2 99%.
[2016-12-22 04:50] LABS: BASOPHILS % (AUTO) 0.3 % (0.0-2.0); HEMATOCRIT 36 % (33-45); HEMOGLOBIN 11.5 g/dL (11.5-14.8); LYMPHOCYTES # (AUTO) 0.5 /CMM (0.8-4.8); LYMPHOCYTES % (AUTO) 5.3 % (20.0-44.0); MEAN CORPUSCULAR HEMOGLOBIN 29 PG (26.0-33.0); MEAN CORPUSCULAR HGB CONC 32 g/dl (31.0-36.0); MEAN CORPUSCULAR VOLUME 92 fL (82-100); MONOCYTES # (AUTO) 0.3 /CMM (0.1-1.30); MONOCYTES % (AUTO) 3.2 % (2.0-12.0); NEUTROPHILS # (AUTO) 9.1 /CMM (1.8-8.9); NEUTROPHILS % (AUTO) 91.2 % (43.0-81.0); PLATELET COUNT (AUTO) 257 /CMM (150-450); RDW COEFFICIENT OF VARIATION 15.3 (11.5-15.0); RED BLOOD CELL COUNT(AUTO) 3.93 MIL/uL (4.0-5.2); WHITE BLOOD COUNT (AUTO) 9.9 K/uL (4.3-11.0)
[2016-12-22 05:02] LABS: CHOLESTEROL 144 mg/dL (<200); HDL CHOLESTEROL 47 mg/dL (40-60); LDL 89 mg/dL (0-99); TRIGLYCERIDES 76 mg/dL (30-150)
[2016-12-22 05:05] LABS: ALANINE AMINOTRANSFERASE 33 U/L (12-78); ALBUMIN 2.5 g/dL (3.4-5.0); ALKALINE PHOSPHATASE 77 U/L (46-116); ASPARTATE AMINOTRANSFERASE 32 U/L (15-37); BILIRUBIN,TOTAL 0.5 mg/dL (0.2-1.0); CALCIUM, SERUM 9.8 mg/dL (8.5-10.1); CHLORIDE 107 mmol/L (98-107); CREATININE 0.9 mg/dL (0.6-1.3); GLUCOSE 97 mg/dL (74-106); MAGNESIUM 2.3 mg/dL (1.8-2.4); PHOSPHORUS 3.9 mg/dL (2.5-4.9); POTASSIUM 3.4 mmol/L (3.5-5.1); SODIUM SERUM 150 mmol/L (136-145); TOTAL PROTEIN, SERUM 6.2 g/dL (6.4-8.2); UREA NITROGEN, BLOOD 39 mg/dL (7-18)
[2016-12-22 05:21] LABS: CARBON DIOXIDE 40 mmol/L (21-32)
--- NOTE | 2016-12-22 05:45 | NUR ---
EFFICIENCY ENGINEER NOTES AM LABS RESULTED WITH CO2 OF 40. ROSALIE VALENTINO EXHIBIT CLEANER MADE AWARE. ORDER RECEIVED FOR ABG IN AM.
[2016-12-22 06:01] LABS: ABG BASE EXCESS 12.1 mmol/L; ABG OXYGEN SATURATION 88.3 % (92.0-98.5); ABG PCO2 71.3 mmHg (35.0-45.0); ABG PH 7.369 (7.350-7.450); AaDO2 176.4 mmHg; COHb 0.3 % (0.5-1.5); MetHb 0.6 % (0.0-1.5); O2Hb 87.5 % (94.0-97.0); SITE, ABG Right Radial; VENT MODE, BG nasal cannula
[2016-12-22 06:05] LABS: TROPONIN I 1.167 ng/mL (0.00-0.056)
--- NOTE | 2016-12-22 08:20 | NUR ---
WELLHEAD PUMPER NOTES RECEIVED PT IN BED, SLEEPY BUT AROUSABLE TO NAME AND TOUCH. TELE READS AFIB IN THE 98s. ON BIPAP AT ORDERED SETTINGS, TOLERATED WELL. CHEST X DOUGLAS DONE ,PALUMBO CATH TO GRAVITY IN PLACE, DRAINING WELL WITH YELLOW COLOR URINE . RAC 20G IV INTACT, SALINE LOCKED. NPO STATUS, HOB ELEVATED, SIDE RAILS X3, CALL LIGHT WITHIN REACH ON [employer] BED IN LOWEST AND LOCKED POSITION , CALL LIGHT WITHIN REACH. ON NPO STATUS , WILL CONT TO MONITOR CLOSELY
--- NOTE | 2016-12-22 09:20 | NUR ---
LURER JESUS SPOKE WITH DR MAGALLANES NOTIFIED IF OK TO PLCE DVT PUMPS, STATED NO AT THIS TIME , PATINT ON LOVENOX SPOKE WITH ABOUT TROPONIN 1.[address] SOSA MEDICAL/SURGERY REGISTERED NURSE WILL COME TO SEE PATIENT SOON NOTIFIED THAT NA 150 K 304 NO NEW ORDER GIVEN AT THIS TIME Addendum: 12/22/16 at 0940 by PAWEL THOMPSON RN CORRECTION K 3.4
--- NOTE | 2016-12-22 09:40 | NUR ---
EXECUTIVE CASINO HOST NOTE SPOKE WITH DR FUENTES ASKED ABOUT SWALLOW EVAL ,STATED ABG TODAY NOT YET SWALLOW EVAL,ORDERED ABG STAT , CALLED RT
--- NOTE | 2016-12-22 10:38 | NUR ---
SYSTEM ARCHIVE ANALYST NOTE ABG DONE ,PLACED ON 2L NC, SAT 94% ,NO SOB AT THIS TIME FAMILY AT BEDSIDE Addendum: 12/22/16 at 1039 by PWAEL THOMPSON RN DR FUENTES AWARE OF ABG RESULT
[2016-12-22 12:27] LABS: ABG OXYGEN SATURATION 90.6 % (92.0-98.5); ABG PCO2 64.5 mmHg (35.0-45.0); ABG PH 7.392 (7.350-7.450); ABG PO2 59.7 mmHg (75.0-100.0); AaDO2 63.8 mmHg; COHb 0.1 % (0.5-1.5); MetHb 0.6 % (0.0-1.5); SITE, ABG Right Radial; VENT MODE, BG NASAL CANNULA
--- NOTE | 2016-12-22 14:20 | NUR ---
RADIO DISC JOCKEY NOTE SPOKE WITH IAN CARD PUNCHER NOTIFIED THAT BP 173/86 HR 95-126 AFIB, AWARE THAT ON DIGOXIN 0.125 MG IV DAILY, STATED THAT WILL CHECK PATIENT SOON
--- NOTE | 2016-12-22 14:32 | NUR ---
JUNIOR BUYERRADHA GARVEY AT BEDSIDE ,STATED OK TO START PUREE DIET WITH THICKENING LIQUIDS WITH ASPIRATION PRECAUTION Addendum: 12/22/16 at 1539 by PAWEL THOMPSON RN RT AT BEDSIDE BREATHING TX DONE . DR GA DATA ENTRY SUPERVISOR ALSO AT BED SIDE AWARE THAT HR 120 AFIB ON TELE AT THIS TIME, STATED THAT WILL ORDER CARDIZEM AND APRESOLINE PRN ,WILL F\U MONITOR AND BP 163\83
--- NOTE | 2016-12-22 16:43 | NUR ---
YARN WORKER NOTE DR FLANAGAN AT BEDSIDE TELEPHONE CONSENT FOR SACRAL DEBRIDEMENT DONE OPHELIA Alicia WITH GRAND DAUGHTER DENNIS , ALSO SEEN BY LAKEISHA GARCIA CLEAN ROOM TECHNICIAN NOTIFIED THAT GRAM POSITIVE COCCI IN BLOOD
--- NOTE | 2016-12-22 18:33 | NUR ---
ENVIRONMENTAL HEALTH INSPECTOR NOTE HAVING DINNER , FED BY STUFF, ALL NEEDS ATTENDED, NOT IN ACUTE DISTRESS
--- NOTE | 2016-12-22 21:09 | NUR ---
BUYER LIAISON INITIAL ASSESSMENT. RECEIVED THE PT REST ON THE BED. AWAKE, ALERT, FOLLOW COMMANDS. CONFUSED. OXYGEN 3L VIA NASAL CANNULA. SAT 92%. AFEBRILE. BOROUGH COORDINATOR SHOWING AFIB. CONTROLLED. RATE IS 88. HOB ELEVATED. IV RT AC 20G. SALINE LOCK. TURN AND REPOSITION Q2H. WILL CONTINUE TO MONITOR VITALS.
[2016-12-23] VITALS (22 sets, daily range): BP systolic 120–172; BP diastolic 55–102
--- NOTE | 2016-12-23 02:53 | NUR ---
TELEPHONE SERVICE ADVISER, PT REFUSED BIPAP. OXYGEN 3L VIA NASAL CANNULA. TOLERATED WELL. SAT 98%
--- NOTE | 2016-12-23 03:33 | NUR ---
LIFE SKILLS COORDINATOR. AM CARE, ORAL CARE, BED BATH GIVEN. LINEN CHANGED, REMAINING SAME OXYGEN TOLERATED WELL. SAT 95%. FILER FINISH SHOWING AFIB.CONTROLLED. HOB ELEVATED. FC PATENT. URINE DRAINING. AFEBRILE. TURN AND REPOSITION Q2H. WILL CONTINUE TO MONITOR VITALS.
[2016-12-23 05:35] LABS: CALCIUM, SERUM 9.8 mg/dL (8.5-10.1); CARBON DIOXIDE 38 mmol/L (21-32); CHLORIDE 104 mmol/L (98-107); CREATININE 1.1 mg/dL (0.6-1.3); GLUCOSE 163 mg/dL (74-106); POTASSIUM 3.3 mmol/L (3.5-5.1); SODIUM SERUM 146 mmol/L (136-145); UREA NITROGEN, BLOOD 43 mg/dL (7-18)
--- NOTE | 2016-12-23 07:00 | NUR ---
icu initial note received pt in bed, awake, a/o x2, periods on confusion, able to make needs known, able to follow commands, pt is on bedside monitor showing controlled a-fib in80's, no c/o of chest pain or discomfort at this time, pt is on 3l nc, sating well, no s/s of resp.distress or sob noted at this time, pt is on pureed diet, pt has f/c draining yellow urine to gravity, pt has lfa #22g,sl, c/d/i/patent, flushing well, no s/s of infection/ infiltration noted at this time, pt is noted with multiple skin issues, wound treatments ack and will be carried out, all needs met at this time, all safety measures in place at all times, call light within easy reach, will monitor pt closely for changes
--- NOTE | 2016-12-23 07:21 | NUR ---
WOUND CARE CONSULT WOUND CARE WILL DEFER CONSULT AND TREATMENT PLAN FOR SACRAL STAGE 4 PRESSURE ULCER TO SURGICAL TEAM AT THIS TIME. MEDICAL RECORD REVIEWED AND ALL PRESSURE ULCER PREVENTION MEASURES NOTED TO BE IN PLACE. PATIENT WITH CURRENT DANIELA AT 11. TREATMENT PLAN IN PLACE PER SURGEON S/P DEBRIDEMENT. ALL DISCUSSED WITH NURSING STAFF.
--- NOTE | 2016-12-23 07:35 | NUR ---
RT PATIENT AWAKE, ALERT, ZERO SOB REPORTED. PATIENT REFUSED RESP HHN TX AT THIS TIME. PATIENT HAS DECENT NON PRODUCTIVE COUGH
--- NOTE | 2016-12-23 08:30 | NUR ---
icu note pt refused to take am medications, explained risks and benefits to pt, pt still refused, stating she doesnt need them
--- NOTE | 2016-12-23 10:30 | NUR ---
ICU NOTE DR. GREENWOOD AND HIS TEAM MADE ROUNDS, AWARE ALL OF LABS AND TEST RESULTS
--- NOTE | 2016-12-23 12:00 | NUR ---
icu note at bedside speaking with grandreid- efrain.
--- NOTE | 2016-12-23 12:54 | NUR ---
icu note manually administered medication, scanner is broke, it aware
--- NOTE | 2016-12-23 19:15 | NUR ---
RN INITIAL NOTES RECEIVED PATIENT IN BED, SLEEPING COMFORTABLY WITH RESPIRATION EVEN AND UNLABORED WITH NO DISTRESS, ON 2LPM OF O2 VIA NC, SATURATION AT 100%. PATIENT EASILY AROUSABLE WITH VERBAL AND TACTILE STIMULI, DENIES ANY PAIN AND DISCOMFORT. CONTROLLED AFIB ON TELE WITH HR IN THE 80s. WITH F/C INTACT AND DRAINING WELL WITH CLOUDY, YELLOW URINE. L FOREARM G22, FLUSHED AND INTACT, NO SIGNS OF INFILTRATION, ON SL. PATIENT TURNED AND REPOSITIONED. SAFETY AND COMFORT ENSURED. BED IN LOW AND LOCKED POSITION. CALL LIGHT IN REACH. WILL MONITOR.
--- NOTE | 2016-12-23 19:17 | NUR ---
closing notes all medications given, all orders carried out, pt keep clean and dry, all treatments carried out, report given to pm rn for angelita
--- NOTE | 2016-12-23 20:16 | NUR ---
Patient resides at [address] [place] [address] ,currently on 7days bedhold. Current plan is to dc back to SNF once discharge. Addendum: 12/23/16 at 2016 by FABI JULES RN Amended: Links added.
--- NOTE | 2016-12-23 21:30 | NUR ---
RN NOTES PATIENT WITH NO DISTRESS. AWAKE AND ALERT, PERIODS OF CONFUSION NOTED. REORIENTED NEEDED. PATIENT NOTED WITH PRODUCTIVE COUGH, UNABLE TO EXPECTORATE, PATIENT STRONGLY REFUSING NASOPHARYNGEAL SUCTIONING, WITH REASSURANCE AND EXPLANATION PROVIDED TO NO AVAIL. ALL DUE HS MEDS GIVEN ORDERED. ASPIRATION PRECAUTION OBSERVED AT ALL TIMES. PATIENT'S O2 TITRATED TO 1LPM VIA NC, WILL MONITOR TOLERANCE. SAFETY AND COMFORT ENSURED. CALL LIGHT IN REACH.
[2016-12-24] VITALS (7 sets, daily range): BP systolic 123–160; BP diastolic 49–73
[2016-12-24 06:36] LABS: HEMATOCRIT 33 % (33-45); HEMOGLOBIN 10.6 g/dL (11.5-14.8); LYMPHOCYTES # (AUTO) 0.3 /CMM (0.8-4.8); LYMPHOCYTES % (AUTO) 3.2 % (20.0-44.0); MEAN CORPUSCULAR HEMOGLOBIN 29 PG (26.0-33.0); MEAN CORPUSCULAR HGB CONC 32 g/dl (31.0-36.0); MEAN CORPUSCULAR VOLUME 91 fL (82-100); MONOCYTES # (AUTO) 0.5 /CMM (0.1-1.30); MONOCYTES % (AUTO) 6.4 % (2.0-12.0); NEUTROPHILS # (AUTO) 7.4 /CMM (1.8-8.9); NEUTROPHILS % (AUTO) 90.4 % (43.0-81.0); PLATELET COUNT (AUTO) 254 /CMM (150-450); RDW COEFFICIENT OF VARIATION 14.9 (11.5-15.0); RED BLOOD CELL COUNT(AUTO) 3.61 MIL/uL (4.0-5.2); WHITE BLOOD COUNT (AUTO) 8.2 K/uL (4.3-11.0)
[2016-12-24 06:54] LABS: CALCIUM, SERUM 9.8 mg/dL (8.5-10.1); CHLORIDE 102 mmol/L (98-107); CREATININE 0.9 mg/dL (0.6-1.3); GLUCOSE 142 mg/dL (74-106); MAGNESIUM 1.9 mg/dL (1.8-2.4); POTASSIUM 3.7 mmol/L (3.5-5.1); SODIUM SERUM 146 mmol/L (136-145); UREA NITROGEN, BLOOD 35 mg/dL (7-18)
--- NOTE | 2016-12-24 07:24 | NUR ---
RN CLOSING NOTES PATIENT WITH NO ACUTE DISTRESS OBSERVED OVERNIGHT. REMAINS AFIB AT 80s. PRODUCTIVE COUGH NOTED, UNABLE TO EXPECTORATE. WAS ABLE TO SUCTION PATIENT EARLIER WITH MINIMAL YELLOW, THICK SECRETION NOTED. PATIENT STILL NOTED TO BE CONGESTED. BREATHING TREATMENT WAS RENDERED ORDERED. ASPIRATION PRECAUTION OBSERVED AT ALL TIMES. 2LPM OF O2 VIA NC. NEEDS ANTICIPATED AND MET. SAFETY AND COMFORT ENSURED. F/C REMAINS INTACT WITH CLOUDY, YELLOW URINE. BED IN LOW AND LOCKED POSITION. CALL LIGHT IN REACH. VANCO TROUGH STILL PENDING. ENDORSED TO INCOMING NURSE REGARDING THE 0600 VANCO IV SCHEDULED TO F/UP WITH PHARMACY FOR DOSING.
[2016-12-24 07:28] LABS: CARBON DIOXIDE 40 mmol/L (21-32)
--- NOTE | 2016-12-24 07:30 | NUR ---
OPERATIONS CONSULTANT NOTES RECEIVED PATIENT IN BED AWAKE. A/O X1, APPEARS ANXIOUS. ON OXYGEN 2LPM VIA NC, WITH PRODUCTIVE COUGH, UNABLE TO EXPECTORATE. BREATHING TREATMENT TO BE GIVEN BY RT. IV IN LFA WAS DISLODGED, WILL RE INSERT. ON TELE MONITOR AFIB HR 105, DENIES CHEST PAINT. PALUMBO CATH INTACT, DRAINING TO GRAVITY. PLACE CALL LIGHT WITHIN REACH. WILL CONT TO MONITOR.
--- NOTE | 2016-12-24 18:57 | NUR ---
AN/SSN 2 4 OPERATOR CLOSING NOTES PATIENT IN BED, A/O X2. ON TELE MONITOR AFIB HR 88. ON ANTIBIOTIC WITH NO ADVERSE SIDE EFFECT, AFEBRILE. BREATHING TREATMENT GIVEN BY RT, OXYGEN AT 2LPM VIA NC, NO SOB. PHOSPHORUS SUPPLEMENTED. DRESSING CHANGED TO SACRAL WOUND, TURN AND REPOSITION IN BED. SCD IN PLACE. CALL LIGHT WITHIN REACH. WILL ENDORSE TO EMBEDDED SOFTWARE MANAGER RN FOR CONTINUITY OF CARE.
--- NOTE | 2016-12-24 19:15 | NUR ---
RN INITIAL NOTES RECEIVED PATIENT IN BED, SLEEPING COMFORTABLY WITH RESPIRATION EVEN AND UNLABORED WITH NO DISTRESS, ON 2LPM OF O2 VIA NC, SATURATION AT 100%. PATIENT EASILY AROUSABLE WITH VERBAL AND TACTILE STIMULI, DENIES ANY PAIN AND DISCOMFORT. CONTROLLED AFIB ON TELE WITH HR 88. WITH F/C INTACT AND DRAINING WELL WITH CLOUDY, YELLOW URINE. R HAND G22, FLUSHED AND INTACT, NO SIGNS OF INFILTRATION, ON SL, ARM SLEEVE IN PLACE. PATIENT TURNED AND REPOSITIONED. SAFETY AND COMFORT ENSURED. BED IN LOW AND LOCKED POSITION. CALL LIGHT IN REACH. WILL MONITOR.
[2016-12-25] VITALS: BP_SYST 123; BP_DIAS 60; BP_DIAS 66
[2016-12-25 04:00] VITALS: BP 160/69
--- NOTE | 2016-12-25 06:50 | NUR ---
RN CLOSING NOTES PATIENT WITH NO ACUTE DISTRESS OBSERVED OVERNIGHT. PATIENT WITH NO C/O PAIN AND DISCOMFORT. REMAINS AFIB ON TELE WITH HR KEPT IN THE 80s. F/C INTACT AND DRAINING VIA GRAVITY. ALL DUE MEDS GIVEN ORDERED. AM LABS DRAWN. NEEDS ANTICIPATED AND MET. SAFETY AND COMFORT ENSURED. TURNED AND REPOSITIONED [id number] AND PRN. BED IN LOW AND LOCKED POSITION. CALL LIGHT IN REACH. WILL ENDORSE ACCORDINGLY FOR CONTINUITY OF CARE.
[2016-12-25 06:53] LABS: HEMATOCRIT 33 % (33-45); HEMOGLOBIN 10.7 g/dL (11.5-14.8); LYMPHOCYTES # (AUTO) 0.2 /CMM (0.8-4.8); LYMPHOCYTES % (AUTO) 2.6 % (20.0-44.0); MEAN CORPUSCULAR HEMOGLOBIN 29 PG (26.0-33.0); MEAN CORPUSCULAR HGB CONC 32 g/dl (31.0-36.0); MEAN CORPUSCULAR VOLUME 91 fL (82-100); MONOCYTES # (AUTO) 0.3 /CMM (0.1-1.30); MONOCYTES % (AUTO) 3.9 % (2.0-12.0); NEUTROPHILS # (AUTO) 8.1 /CMM (1.8-8.9); NEUTROPHILS % (AUTO) 93.5 % (43.0-81.0); PLATELET COUNT (AUTO) 240 /CMM (150-450); RDW COEFFICIENT OF VARIATION 15.2 (11.5-15.0); RED BLOOD CELL COUNT(AUTO) 3.66 MIL/uL (4.0-5.2); WHITE BLOOD COUNT (AUTO) 8.7 K/uL (4.3-11.0)
[2016-12-25 07:33] LABS: CALCIUM, SERUM 9.9 mg/dL (8.5-10.1); CARBON DIOXIDE 39 mmol/L (21-32); CHLORIDE 102 mmol/L (98-107); CREATININE 0.9 mg/dL (0.6-1.3); GLUCOSE 99 mg/dL (74-106); MAGNESIUM 1.9 mg/dL (1.8-2.4); PHOSPHORUS 2.1 mg/dL (2.5-4.9); POTASSIUM 3.7 mmol/L (3.5-5.1); SODIUM SERUM 145 mmol/L (136-145); UREA NITROGEN, BLOOD 33 mg/dL (7-18)
--- NOTE | 2016-12-25 07:40 | NUR ---
RT PATIENT REFUSED HHN TX. NO SOB NOTED. RESTING COMFORTABLY
[2016-12-25 08:00] VITALS: BP 155/77
[2016-12-25 12:00] VITALS: BP 131/76
[2016-12-25] MEDS ORDERED: PRED50TA PO (15:06)
[2016-12-25] MEDS ORDERED: PRED20TA PO (15:06)
[2016-12-25 16:00] VITALS: BP 140/80
[2016-12-25 17:37] VITALS: BP 140/80
--- NOTE | 2016-12-25 18:00 | NUR ---
RN NOTE PT DISCHARGED TO [facility], REPORT GIVEN TO KAYA, ID BAND REMOVED, IN STABLE CONDITION, IV REMOVED, F/C LEFT IN PLACE, EXIT CARE DONE, DISCHARGE INSTRUCTIONS GIVEN TO PT AND EMT, PT REFUSED FLU VACCINE, PT LEFT VIA AMBULANCE. PT HAD NO BELONGINGS.
== END 2016-12-25 18:40 | DRG 951 ==
LOC: ER 12:45 → ICUOV 14:59 → TELE1 12-23 12:24
PROVIDERS: ADMIT Internal Medicine; ATTEND Internal Medicine
PROC: 5A09357 Assistance with Respiratory Ventilation, Less than 24 Consecutive Hours, Continuous Positive Airway Pressure (ICD-10-PCS; principal; 2016-12-22)
PROC: 0KBP0ZZ Excision of Left Hip Muscle, Open Approach (ICD-10-PCS; principal; 2016-12-22)
PROC: 0KBN0ZZ Excision of Right Hip Muscle, Open Approach (ICD-10-PCS; principal; 2016-12-22)
DX: D68.59 Other primary thrombophilia (principal); I21.4 Non-ST elevation (NSTEMI) myocardial infarction; J96.21 Acute and chronic respiratory failure with hypoxia; N17.0 Acute kidney failure with tubular necrosis; L89.154 Pressure ulcer of sacral region, stage 4; G93.40 Encephalopathy, unspecified; I50.33 Acute on chronic diastolic (congestive) heart failure; E87.0 Hyperosmolality and hypernatremia; I11.0 Hypertensive heart disease with heart failure; R53.2 Functional quadriplegia; E44.0 Moderate protein-calorie malnutrition; F03.90 Unspecified dementia, unspecified severity, without behavioral disturbance, psychotic disturbance, mood disturbance, and anxiety; I25.10 Atherosclerotic heart disease of native coronary artery without angina pectoris; E78.5 Hyperlipidemia, unspecified; K21.9 Gastro-esophageal reflux disease without esophagitis; Z95.1 Presence of aortocoronary bypass graft; Z86.73 Personal history of transient ischemic attack (TIA), and cerebral infarction without residual deficits; Z85.42 Personal history of malignant neoplasm of other parts of uterus; Z79.899 Other long term (current) drug therapy; Z79.82 Long term (current) use of aspirin; Z74.01 Bed confinement status; Z66 Do not resuscitate; F01.50 Vascular dementia, unspecified severity, without behavioral disturbance, psychotic disturbance, mood disturbance, and anxiety; Z22.322 Carrier or suspected carrier of Methicillin resistant Staphylococcus aureus; J96.22 Acute and chronic respiratory failure with hypercapnia; I48.2 Chronic atrial fibrillation; J44.9 Chronic obstructive pulmonary disease, unspecified; F09 Unspecified mental disorder due to known physiological condition; E66.2 Morbid (severe) obesity with alveolar hypoventilation; Z68.24 Body mass index [BMI] 24.0-24.9, adult
CPT/HCPCS: 36415; 36600; 71010-TC; 80048-TC; 80053-TC; 80061-TC; 80076-TC; 80162-TC; 80202-TC; 82803-TC; 83605-TC; 83735-TC; 84100-TC; 84484-TC; 85025-TC; 85730-TC; 87040-TC; 87081-TC; 92526; 92611-TC; 93307-TC; 94668-TC; 94799-TC; A4606; A6248; A6402; A6403; J1160; J1650; J1940; J2920; J3370; J3490; J7030; J7060; Z7610